=== PATIENT | male | born 1950 | race Caucasian/White ===

== ENCOUNTER 2018-12-30 02:26 | Outpatient (CLI) | payer MEDICARE, BC, SELFPAY ==
[2018-12-30 09:21] LABS: Hemoglobin A1C 6.1 % (4.5-6.2)
[2018-12-30 10:01] LABS: ALT 28 U/L (12-78); AST 20 U/L (15-37); Albumin 3.8 g/dL (3.4-5.0); Alkaline Phosphatase 53 U/L (46-116); BUN 21 mg/dL (7-18); Bilirubin, Total 0.5 mg/dL (0.2-1.0); CREATININE 1.02 mg/dL (0.70-1.30); Calcium 9.2 mg/dL (8.5-10.1); Chloride 102 mmol/L (98-107); Cholesterol 130 mg/dL (50-200); Glucose 117 mg/dL (70-100); HDL Cholesterol 41 mg/dL (40-60); LDL CHOLESTEROL 72 mg/dL (<100); Potassium 4.7 mmol/L (3.5-5.1); Sodium 138 mmol/L (136-145); Total Protein 6.7 g/dL (6.4-8.2); Triglyceride 89 mg/dL (30-150)
== END 2018-12-30 02:46 ==
PROVIDERS: PCP Nurse Practitioner; Visit Provider Nurse Practitioner
DX: E78.5 Hyperlipidemia, unspecified (principal); R73.01 Impaired fasting glucose; I10 Essential (primary) hypertension
CPT/HCPCS: 36415; 80053; 80061; 83721; 83036

== ENCOUNTER 2020-03-01 03:58 | Outpatient (CLI) | payer MEDICARE, BC, SELFPAY ==
[2020-03-01 10:58] LABS: Hemoglobin A1C 6.4 % (3.8-5.6)
[2020-03-01 11:21] LABS: ALT 36 U/L (16-63); AST 25 U/L (15-37); Alkaline Phosphatase 54 U/L (46-116); Anion Gap 10.1 mmol/L (3-11); BUN 29 mg/dL (7-18); Bilirubin, Total 0.8 mg/dL (0.2-1.0); CO2 24.9 mmol/L (21.0-32.0); CREATININE 1.25 mg/dL (0.70-1.30); Calcium 8.9 mg/dL (8.5-10.1); Calculated LDL 46 mg/dL (<100); Chloride 100 mmol/L (98-107); Cholesterol 136 mg/dL (<200); Estimated GFR 56.94 (mL/min/1.73m2); Glucose 132 mg/dL (74-106); HDL Cholesterol 43 mg/dL (40-60); Potassium 4.5 mmol/L (3.5-5.1); Sodium 135 mmol/L (136-145); Total Protein 7.1 g/dL (6.4-8.2); Triglyceride 237 mg/dL (<150)
== END 2020-03-01 04:18 ==
PROVIDERS: PCP Nurse Practitioner; Visit Provider Nurse Practitioner
DX: E78.5 Hyperlipidemia, unspecified (principal); I10 Essential (primary) hypertension; R73.01 Impaired fasting glucose
CPT/HCPCS: 36415; 80053; 80061; 83036

== ENCOUNTER 2020-11-12 09:46 | Outpatient (CLI) | payer MEDICARE, BC, SELFPAY ==
[2020-11-13 12:37] LABS: COVID-19 RT-PCR UVMMC Result Negative (Negative)
== END 2020-11-12 10:06 ==
PROVIDERS: PCP Nurse Practitioner; Visit Provider Nurse Practitioner
DX: Z20.822 Contact with and (suspected) exposure to COVID-19 (principal)
CPT/HCPCS: U0003; U0005

== ENCOUNTER 2021-04-12 02:22 | Outpatient (CLI) | payer MEDICARE, BC, SELFPAY ==
[2021-04-12 13:17] LABS: HCT 43.5 % (40.0-50.0); HGB 14.4 g/dL (13.5-17.5); MCH 30.9 pg (27.0-33.0); MCHC 33.1 % (32.0-36.0); MCV 93.3 fL (80-95); MPV 9.1 fL (8.0-11.0); Platelet Count 276 10^3/uL (130-400); RBC 4.66 10^6/uL (4.36-5.78); RDW 11.6 % (11.8-14.1); RDW-SD 39.7 fL
[2021-04-12 13:29] LABS: Hemoglobin A1C 6.4 % (<5.7)
[2021-04-12 14:15] LABS: ALT 23 U/L (16-63); AST 17 U/L (15-37); Albumin 3.9 g/dL (3.4-5.0); Alkaline Phosphatase 50 U/L (46-116); Anion Gap 10.7 mmol/L (3-11); BUN 20 mg/dL (7-18); Bilirubin, Total 0.7 mg/dL (0.2-1.0); CO2 25.3 mmol/L (21.0-32.0); Calcium 8.5 mg/dL (8.5-10.1); Chloride 106 mmol/L (98-107); Glucose 92 mg/dL (74-106); Potassium 4.6 mmol/L (3.5-5.1); Sodium 142 mmol/L (136-145); Total Protein 6.4 g/dL (6.4-8.2)
[2021-04-12 14:27] LABS: Calculated LDL 61 mg/dL (<100); Cholesterol 121 mg/dL (<200); HDL Cholesterol 46 mg/dL (40-60); Triglyceride 71 mg/dL (<150)
[2021-04-12 22:16] LABS: PSA, Screening 0.7 ng/mL (0.0-6.5)
== END 2021-04-12 02:23 | disposition home or self-care (01) ==
LOC: LBO 02:22
PROVIDERS: PCP Nurse Practitioner; Visit Provider Nurse Practitioner
DX: E78.5 Hyperlipidemia, unspecified (principal); I10 Essential (primary) hypertension; R73.03 Prediabetes; N40.1 Benign prostatic hyperplasia with lower urinary tract symptoms; Z12.5 Encounter for screening for malignant neoplasm of prostate
CPT/HCPCS: 36415; 80053; 80061; 84153; 85027; 83036

== ENCOUNTER 2022-05-19 03:54 | Outpatient (CLI) | payer MEDICARE, SELFPAY ==
[2022-05-19 08:11] LABS: HCT 42.3 % (40.0-50.0); HGB 14.4 g/dL (13.5-17.5); MCH 31.6 pg (27.0-33.0); MCV 93 fL (80-95); MPV 9.2 fL (8.0-11.0); Platelet Count 279 10^3/uL (130-400); RBC 4.55 10^6/uL (4.36-5.78); RDW 11.9 % (11.8-14.1); RDW-SD 40.2 fL; WBC 9.65 10^3/uL (4.4-10.8)
[2022-05-19 08:45] LABS: ALT 27 U/L (16-63); AST 19 U/L (15-37); Albumin 3.7 g/dL (3.4-5.0); Alkaline Phosphatase 39 U/L (46-116); Anion Gap 9.1 mmol/L (3-11); BUN 24 mg/dL (7-18); Bilirubin, Total 0.6 mg/dL (0.2-1.0); CO2 24.9 mmol/L (21.0-32.0); CREATININE 1.1 mg/dL (0.70-1.30); Calcium 8.1 mg/dL (8.5-10.1); Calculated LDL 52 mg/dL (<100); Chloride 103 mmol/L (98-107); Cholesterol 119 mg/dL (<200); Glucose 129 mg/dL (74-106); HDL Cholesterol 44 mg/dL (40-60); Potassium 4.5 mmol/L (3.5-5.1); Sodium 137 mmol/L (136-145); Triglyceride 116 mg/dL (<150)
== END 2022-05-19 03:55 | disposition home or self-care (01) ==
LOC: LBO 03:55
PROVIDERS: PCP Nurse Practitioner; Visit Provider Nurse Practitioner
DX: E78.5 Hyperlipidemia, unspecified (principal); I10 Essential (primary) hypertension; R73.01 Impaired fasting glucose; R07.9 Chest pain, unspecified
CPT/HCPCS: 36415; 80053; 80061; 85027

== ENCOUNTER 2023-01-14 03:11 | Outpatient (CLI) | payer MEDICARE, SELFPAY ==
[2023-01-14 08:35] LABS: Hemoglobin A1C 6.5 % (<5.7)
[2023-01-14 08:46] LABS: ALT 36 U/L (16-63); AST 23 U/L (15-37); Albumin 3.7 g/dL (3.4-5.0); Alkaline Phosphatase 48 U/L (46-116); Anion Gap 6.4 mmol/L (3-11); BUN 22 mg/dL (7-18); Bilirubin, Total 0.6 mg/dL (0.2-1.0); CO2 29.6 mmol/L (21.0-32.0); CREATININE 1.1 mg/dL (0.70-1.30); Calcium 8.8 mg/dL (8.5-10.1); Calculated LDL 38 mg/dL (<100); Chloride 104 mmol/L (98-107); Cholesterol 103 mg/dL (<200); Estimated GFR 70.88 (mL/min/1.73m2); Glucose 152 mg/dL (74-106); HDL Cholesterol 40 mg/dL (40-60); Sodium 140 mmol/L (136-145); Total Protein 6.9 g/dL (6.4-8.2); Triglyceride 126 mg/dL (<150)
== END 2023-01-14 03:12 | disposition home or self-care (01) ==
LOC: LBO 03:11
PROVIDERS: PCP Nurse Practitioner; Visit Provider Nurse Practitioner
DX: E78.5 Hyperlipidemia, unspecified (principal); I10 Essential (primary) hypertension; R73.03 Prediabetes
CPT/HCPCS: 36415; 80053; 80061; 83036

== ENCOUNTER → 2023-11-17 08:27 | Outpatient (BNVA) | payer MEDICARE, SELFPAY | PROVIDERS: PCP Nurse Practitioner; Referring Provider Nurse Practitioner; Visit Provider Podiatrist | DX: M77.41 Metatarsalgia, right foot; M77.42 Metatarsalgia, left foot; G62.9 Polyneuropathy, unspecified; M67.01 Short Achilles tendon (acquired), right ankle; M67.02 Short Achilles tendon (acquired), left ankle | CPT/HCPCS: 99213 ==

== ENCOUNTER 2023-12-07 04:03 | Outpatient (CLI) | payer MEDICARE, SELFPAY ==
[2023-12-07 07:48] LABS: Hemoglobin A1C 6.1 % (<5.7)
[2023-12-07 07:53] LABS: ALT 27 U/L (16-63); AST 18 U/L (15-37); Albumin 3.9 g/dL (3.4-5.0); Alkaline Phosphatase 56 U/L (46-116); BUN 24 mg/dL (7-18); Bilirubin, Total 0.5 mg/dL (0.2-1.0); CREATININE 1.1 mg/dL (0.70-1.30); Calcium 9.4 mg/dL (8.5-10.1); Calculated LDL 50 mg/dL (<100); Chloride 102 mmol/L (98-107); Cholesterol 111 mg/dL (<200); Estimated GFR 70.44 (mL/min/1.73m2); Glucose 145 mg/dL (74-106); HDL Cholesterol 44 mg/dL (40-60); Sodium 138 mmol/L (136-145); Total Protein 7.2 g/dL (6.4-8.2); Triglyceride 88 mg/dL (<150)
== END 2023-12-07 04:04 | disposition home or self-care (01) ==
LOC: LBO 04:03
PROVIDERS: Absent Provider Nurse Practitioner; PCP Nurse Practitioner; Referring Provider Nurse Practitioner; Visit Provider Nurse Practitioner
DX: E78.5 Hyperlipidemia, unspecified (principal); E11.9 Type 2 diabetes mellitus without complications; R07.9 Chest pain, unspecified; I10 Essential (primary) hypertension
CPT/HCPCS: 36415; 80053; 80061; 83036

== ENCOUNTER → 2024-02-16 08:57 | Outpatient (BNVA) | payer MEDICARE, SELFPAY | PROVIDERS: PCP Nurse Practitioner; Referring Provider Nurse Practitioner; Visit Provider Podiatrist | DX: M77.41 Metatarsalgia, right foot; M77.42 Metatarsalgia, left foot; M79.671 Pain in right foot; G62.9 Polyneuropathy, unspecified; M67.01 Short Achilles tendon (acquired), right ankle; M67.02 Short Achilles tendon (acquired), left ankle; M79.672 Pain in left foot | CPT/HCPCS: 99213 ==

== ENCOUNTER 2024-02-16 09:57 | Outpatient (CLI) | payer MEDICARE, SELFPAY ==
[2024-02-16 10:32] LABS: Vitamin B12 > 2000 pg/mL (193-986)
== END 2024-02-16 09:58 | disposition home or self-care (01) ==
LOC: LBO 09:57
PROVIDERS: PCP Nurse Practitioner; Visit Provider Podiatrist
DX: R79.89 Other specified abnormal findings of blood chemistry (principal)
CPT/HCPCS: 36415; 82607

== ENCOUNTER → 2024-03-16 09:06 | Outpatient (BNVA) | payer MEDICARE, SELFPAY | PROVIDERS: PCP Nurse Practitioner; Referring Provider Nurse Practitioner; Visit Provider Podiatrist | DX: R79.89 Other specified abnormal findings of blood chemistry; M77.41 Metatarsalgia, right foot; M77.42 Metatarsalgia, left foot; G62.9 Polyneuropathy, unspecified; M67.01 Short Achilles tendon (acquired), right ankle; M67.02 Short Achilles tendon (acquired), left ankle; M79.671 Pain in right foot; M79.672 Pain in left foot | CPT/HCPCS: 99213 ==

== ENCOUNTER → 2024-09-21 09:29 | Outpatient (BNVA) | payer MEDICARE, SELFPAY | PROVIDERS: PCP Nurse Practitioner; Referring Provider Nurse Practitioner; Visit Provider Podiatrist | DX: R79.89 Other specified abnormal findings of blood chemistry (principal); M77.41 Metatarsalgia, right foot; M77.42 Metatarsalgia, left foot; G62.9 Polyneuropathy, unspecified; M67.01 Short Achilles tendon (acquired), right ankle; M67.02 Short Achilles tendon (acquired), left ankle | CPT/HCPCS: 99213 ==

== ENCOUNTER 2024-12-26 02:01 | Outpatient (CLI) | payer MEDICARE, SELFPAY ==
[2024-12-26 08:03] LABS: ALT 25 U/L (16-63); AST 19 U/L (15-37); Albumin 3.8 g/dL (3.4-5.0); Alkaline Phosphatase 58 U/L (46-116); Anion Gap 6.2 mmol/L (3-11); BUN 26 mg/dL (7-18); Bilirubin, Total 0.6 mg/dL (0.2-1.0); CO2 28.8 mmol/L (21.0-32.0); CREATININE 1.4 mg/dL (0.70-1.30); Calcium 9.1 mg/dL (8.5-10.1); Calculated LDL 42 mg/dL (<100); Chloride 104 mmol/L (98-107); Cholesterol 115 mg/dL (<200); Estimated GFR 52.41 (mL/min/1.73m2); Glucose 133 mg/dL (74-106); HDL Cholesterol 49 mg/dL (>or=40); Potassium 4.9 mmol/L (3.5-5.1); Sodium 139 mmol/L (136-145); Triglyceride 122 mg/dL (<150); Vitamin B12 1711 pg/mL (193-986)
== END 2024-12-26 02:02 | disposition home or self-care (01) ==
PROVIDERS: PCP Nurse Practitioner; Referring Provider Nurse Practitioner; Visit Provider Nurse Practitioner
DX: E11.9 Type 2 diabetes mellitus without complications (principal); E78.5 Hyperlipidemia, unspecified; I10 Essential (primary) hypertension; G62.9 Polyneuropathy, unspecified
CPT/HCPCS: 36415; 80053; 80061; 82607

== ENCOUNTER 2025-01-10 01:10 | Outpatient (CLI) | payer MEDICARE, SELFPAY ==
--- NOTE | 2025-01-10 08:30 | DI.US_ITS ---
APPROVED REPORT EXAM: Comprehensive 2D, Doppler, and color-flow Echocardiogram Patient Location: Out-Patient Excavation Laborer: Felipe Smith RDCS (AE) Indications: Systolic murmur Other Information Study Quality: Fair. Technically limited study due to body habitus. Conclusion Technically difficult and suboptimal study Normal left ventricular wall thickness and chamber size. Ejection fraction is 60%. Wall motion is n ormal Normal right ventricular size and function Both atria are normal in size Aortic valve is sclerotic without stenosis or regurgitation Mitral annular calcification. Trace to mild mitral regurgitation Estimated right ventricular systolic pressure is 30 mmHg Ascending aorta measures 3.63 cm Wall motion Left Ventricle The left ventricle is normal size. The left ventricular systolic function is normal. The left ventric ular ejection fraction is within the normal range. There is normal left ventricular wall thickness. T here is normal LV segmental wall motion. The left ventricular diastolic function is normal. There is no ventricular septal defect visualized. LVEF is 60%. Right Ventricle The right ventricle is normal size. The right ventricular systolic function is normal. Atria The left atrium size is normal. The right atrium size is normal. The atrial septum is aneurysmal. Aortic Valve The Aortic valve is sclerotic. There is no aortic valvular stenosis. No aortic regurgitation is prese nt. Mitral Valve Moderate mitral annular calcification. No evidence of mitral valve stenosis. Trace to mild mitral reg urgitation. Tricuspid Valve The tricuspid valve is normal in structure. There is no tricuspid valve stenosis. Mild tricuspid regu rgitation. The RVSP is 30 mmHg. Pulmonic Valve The pulmonary valve is normal in structure. There is no pulmonic valvular stenosis. There is no pulmo boogie valvular regurgitation. Great Vessels The aortic root is normal in size. The ascending aorta is mildly dilated. Aortic arch is normal in ca liber. IVC is normal in size and collapses >50% with inspiration. Pericardium There is no pericardial effusion. 2D Dimensions IVSD d PLAX 1.05 cm M: 0.6-1.2 Ao Root d 3.05 cm M: 3.1 - 3.7 LVPW d PLAX 0.99 cm M: 0.6 - 1.2 Ao Asc Diam d 3.63 cm M: 2.6 - 3.4 LVID d PLAX 3.92 cm M: 4.2 - 5.8 LVDs 2.71 cm M: 2.5 - 4.0 LV EF Teichholz 59.2 % FS 30.94 % LV EDV (Teich) 66.8 mL LV ESV (Teich) 27.2 mL Stroke Vol Index (Teich) 21.50 M-Mode TAPSE 2.30 cm (M/F) >1.7 Auto EF LV EDV A4C 86.2 mL LV EDV A2C 82.7 mL LV EDV BP 83.9 mL LV ESV A4C 37.6 mL LV ESV A2C 36.4 mL LV ESV BP 36.7 mL LVEF(%) A4C 56.4 % LVEF(%) A2C 55.9 % LVEF(%) BP 56.2 % LV SV A4C 48.7 ml LV SV A2C 46.3 ml LV SV BP 47.2 ml LV CO A4C 4.3 L/min LV CO A2C 4.1 L/min LV CO BP 4.2 L/min HR A4C 88.03 BPM HR A2C 88.46 BPM LV EDV Index (BP) LA Volume LA Length A4C 5.2 cm LA Length A2C 4.7 cm LA Area A4C s 15.05 cm2 LA Area A2C s 12.56 cm2 LA Vol A4C A-L 36.95 mL LA Vol A2C A-L 28.74 mL LA Vol Biplane A-L 34.4 mL LA Vol/BSA A4C A-L LA Vol/BSA A2C A-L LA Vol/BSA BP A-L 18.7 mL/m2 LA Vol A4C MOD 35.1 mL LA Vol A2C MOD 26.3 mL LA Vol BP MOD 31.8 mL RA Volume RA Area A4C 8.3 cm2 RA ESV A4C (A-L) 11.6mL RA Vol/BSA A4C A-L RA Length A4C 5.0 cm RA ESV A4C (MOD) 10.7mL LV Diastology MV E' medial 0.171 (>0.07 m/s) MV E Vmax 1.55 (0.4-1.3 m/s) MV E' lateral 0.108 (>0.1 m/s) Aortic Valve AoV Vmax 2.26 m/s LVOT Vmax 1.37 m/s AoV Peak Grad 20.4 mmHg LVOT Peak Grad 7.5 mmHg AoV Area (Vmax) 1.54 cm2 LVOT VTI 0.239 m AoV VTI 0.402 m LVOT Mean Grad 3.8 mmHg AoV Mean Mateus. 1.67 m/s LVOT SV 60.60 mL AoV Mean Grad 12.3 mmHg LVOT Diam s 1.75 cm AoV Area (VTI) 1.51 cm2 AV Regurg Peak Gr. 20.37 mmHg Velocity Ratio 0.61 Tricuspid Valve RA Pressure 3.00 mmHg TR Vmax 2.59 m/s TV S' 0.17 m/s TR Peak Grad 26.8 mmHg RVSP (TR) 29.9 mmHg
== END 2025-01-10 01:30 ==
LOC: DI 01:11
PROVIDERS: PCP Nurse Practitioner; Visit Provider Internal Medicine Cardiovascular Disease
DX: I08.0 Rheumatic disorders of both mitral and aortic valves (principal)
CPT/HCPCS: 93306

== ENCOUNTER 2025-07-24 02:17 | Outpatient (CLI) | payer MEDICARE, SELFPAY ==
--- NOTE | 2025-07-24 09:20 | DI.US_ITS ---
APPROVED REPORT EXAM: Comprehensive 2D, Doppler, and color-flow Echocardiogram Patient Location: Out-Patient Routing Equipment Tender: Miroslava Bird RDCS (AE) Indications: Slightly dilated ascending aorta Other Information Study Quality: Fair Conclusion Normal left ventricular wall thickness and chamber size. Ejection fraction is 58%. Wall motion is normal Normal right ventricular size and function Both atria are normal in size Aortic valve is sclerotic/calcified without stenosis or regurgitation Estimated right ventricular systolic pressure is 38 mmHg Ascending aorta measures 3.7 cm There is no significant change compared to an echocardiogram from 6 months earlier Wall motion Left Ventricle The left ventricle is normal size. The left ventricular systolic function is normal. The left ventricular ejection fraction is within the normal range. There is normal left ventricular wall thickness. There is normal LV segmental wall motion. There is no ventricular septal defect visualized. LVEF is 58%. Right Ventricle The right ventricle is normal size. The right ventricular systolic function is normal. Atria The left atrium size is normal. The right atrium size is normal. The interatrial septum is intact with no evidence for an atrial septal defect. Aortic Valve Aortic valve is calcified. Number of aortic valve leaflets could not be assessed. No hemodynamically significant valvular aortic stenosis. No aortic regurgitation is present. Mitral Valve The mitral valve is normal in structure. No evidence of mitral valve stenosis. Mild mitral regurgitation. Tricuspid Valve The tricuspid valve is normal in structure. There is no tricuspid valve stenosis. Trace tricuspid regurgitation. The RVSP is 38.4mmHg. Pulmonic Valve Pulmonic valve is not well visualized. There is no pulmonic valvular stenosis. There is no pulmonic valvular regurgitation. Great Vessels The aortic root is normal in size. The ascending aorta is mildly dilated. Aortic arch is dilated. IVC is normal in size and collapses >50% with inspiration. Pericardium There is no pericardial effusion. 2D Dimensions IVSD d PLAX 1.00 cm M: 0.6-1.2 Ao Root d 3.21 cm M: 3.1 - 3.7 LVPW d PLAX 1.00 cm M: 0.6 - 1.2 Ao Asc Diam d 3.70 cm M: 2.6 - 3.4 LVID d PLAX 4.23 cm M: 4.2 - 5.8 LVDs 3.00 cm M: 2.5 - 4.0 LV EF Teichholz 58.0 % FS 30.30 % LV EDV (Teich) 80.1 mL LV ESV (Teich) 33.6 mL M-Mode TAPSE 2.08 cm (M/F) >1.7 Auto EF LV EDV A4C 107.0 mL LV EDV A2C 114.8 mL LV EDV BP 110.5 mL LV ESV A4C 46.4 mL LV ESV A2C 47.1 mL LV ESV BP 47.3 mL LVEF(%) A4C 56.6 % LVEF(%) A2C 59.0 % LVEF(%) BP 57.2 % LV SV A4C 60.5 ml LV SV A2C 67.8 ml LV SV BP 63.2 ml LV CO A4C 4.5 L/min LV CO A2C 5.0 L/min LV CO BP 4.7 L/min HR A4C 74.08 BPM HR A2C 73.93 BPM LV EDV Index (BP) LA Volume LA Length A4C 5.2 cm LA Length A2C 5.6 cm LA Area A4C s 15.86 cm2 LA Area A2C s 21.20 cm2 LA Vol A4C A-L 40.89 mL LA Vol A2C A-L 68.66 mL LA Vol Biplane A-L 54.7 mL LA Vol/BSA A4C A-L LA Vol/BSA A2C A-L LA Vol/BSA BP A-L 29.7 mL/m2 LA Vol A4C MOD 38.9 mL LA Vol A2C MOD 63.9 mL LA Vol BP MOD 51.1 mL RA Volume RA Area A4C 11.0 cm2 RA ESV A4C (A-L) 19.1mL RA Vol/BSA A4C A-L RA Length A4C 5.3 cm RA ESV A4C (MOD) 17.8mL LV Diastology MV E' medial 0.092 (>0.07 m/s) MV E Vmax 1.72 (0.4-1.3 m/s) MV E' lateral 0.092 (>0.1 m/s) MV E' Average 0.092 m/s Aortic Valve AoV Vmax 2.23 m/s LVOT Vmax 1.44 m/s AoV Peak Grad 20.0 mmHg LVOT Peak Grad 8.3 mmHg AoV Area (Vmax) 2.11 cm2 LVOT VTI 0.301 m AoV VTI 0.446 m LVOT Mean Grad 4.9 mmHg AoV Mean Mateus. 1.56 m/s LVOT SV 98.32 mL AoV Mean Grad 11.1 mmHg LVOT Diam s 2.00 cm AoV Area (VTI) 2.20 cm2 Velocity Ratio 0.65 Mitral Valve MV Vmax TIPS 1.63 m/s MV Mean Grad 3.9 (<2mmHg) MV Area PHT 5.57 cm2 MV VTI 0.318 m Pulmonary Valve PV Vmax 1.19 (0.5-1.5 m/s) RVOT Vmax 0.78 m/s PV Peak Grad 5.7 mmHg RVOT Peak Gr. 2.5 mmHg PV Mean Mateus 0.79 m/s RVOT VTI 0.152 m PV Mean Grad 2.9 mmHg RVOT Mean Gr. 1.3 mmHg Tricuspid Valve RA Pressure 3.00 mmHg TR Vmax 2.97 m/s TV S' 0.14 m/s TR Peak Grad 35.4 mmHg RVSP (TR) 38.4 mmHg
== END 2025-07-24 02:37 ==
LOC: DI 02:18
PROVIDERS: Visit Provider Internal Medicine Cardiovascular Disease
DX: I77.810 Thoracic aortic ectasia (principal)
CPT/HCPCS: 93306

== ENCOUNTER 2025-09-15 22:51 | Emergency (ER) | payer MEDICARE, SELFPAY ==
[2025-09-15] VITALS (7 sets, daily range): BP systolic 133–195; BP diastolic 55–69; PULSE 67–99; RESP 18–33; TEMP 36.3; O2SAT 92–96
--- NOTE | 2025-09-15 22:45 | RT.EKG_ITS ---
APPROVED REPORT Exam: Resting ECG Reason for Exam: chest pain Patient Location: E HR:102 bpm ECG Measurements Heart Rate 102 AXIS NV 220 P 164 QRSd 88 QRS 65 QT 370 T 21 QTc 481 Conclusion Sinus or ectopic atrial tachycardia...P axis (-45,135), rate> 99 Prolonged NV interval...NV >215, V-rate 91-[address] segment or T wave abnormalities to suggest occlusive [place]
--- NOTE | 2025-09-15 23:10 | W.ED.GENAD ---
Discharge Plan Disposition Patient Disposition: Admit to [facility] Condition: Serious Discharge Details Clinical Impression: ACS (acute coronary syndrome), Atypical angina, Atrial flutter, Pleural effusion Primary Care Provider: Apolinar Mercedes ED Provider: Vickie Jimenez Home Meds and New Rx's Prescriptions: No Action naproxen sodium 220 mg tablet 220 mg PO BID PRN PreserVision AREDS 4,296 mcg-226 mg-90 mg capsule 1 cap PO BID lisinopril 20 mg tablet 20 mg PO DAILY Qty: 90 3RF metformin 500 mg tablet 500 mg PO BID Qty: 180 3RF simvastatin 20 mg tablet 20 mg PO DAILY Qty: 90 3RF tamsulosin 0.4 mg capsule 0.4 mg PO DAILY Qty: 90 3RF multivitamin [Daily Multi-Vitamin] 1 EACH tablet 1 ea PO DAILY acetaminophen 500 MG tablet 1,000 mg PO Q4H PRN carboxymethylcellulose sodium [Artificial Tears (cmc)] ophthalmic (eye) PRN Rx Instructions: Dry [id number] as needed--[place] 11/02/23 aspirin 81 mg tablet,delayed release (DR/EC) 81 mg PO DAILY naproxen 500 mg tablet 500 mg PO Q8H PRN (Reason: pain) oxycodone 5 mg tablet 5 mg PO Q8H PRN (Reason: pain) HPI General Mode of arrival: ambulatory. Date/Time Provider Initiated Documentation: 09/15/25 22:53. Limitations to Documentation: no limitations. Information obtained by: patient and family. HPI Narrative: 75yo M with hx HTN, DM, tricuspid regurg, 2 weeks post op from right hip replacement, presenting for chest pain. Started around 1700, anterior chest/substernal. Does not radiate to arms or back. Constant but much worse with deep breathing, also seems worse with activity (he thinks due to increased breathing). Has been constant and worsening since onset. Never had similar pain before. Has noticed some swelling in both his legs since the surgery. No increasing pain at surgical site, reports recovering well. Otherwise in his usual state of health with no fevers, chills, rash, nausea, vomiting, abdominal pain, hematuria, or other concerns. Related Data Home Medications ?Medication ?Instructions ?Recorded ?Confirmed multivitamin (Daily Multi-Vitamin 1 ea PO DAILY 04/25/13 12/05/25 tablet) acetaminophen 500 mg tablet 1,000 mg PO Q4H PRN 08/16/15 09/15/25 naproxen sodium 220 mg tablet 220 mg PO BID PRN 08/12/18 09/15/25 vitamins A,C,Z-gojz-pssshe 4,296 1 cap PO BID 07/08/23 09/15/25 mcg-226 mg-90 mg capsule (PreserVision AREDS) carboxymethylcellulose sodium ophthalmic (eye) PRN 11/06/23 06/20/25 [Artificial Tears (cmc)] lisinopril 20 mg tablet 20 mg PO DAILY #90 tab-caps 12/13/24 09/15/25 metformin 500 mg tablet 500 mg PO BID #180 tabs 12/13/24 09/15/25 simvastatin 20 mg tablet 20 mg PO DAILY #90 tab-caps 12/13/24 09/15/25 tamsulosin 0.4 mg capsule 0.4 mg PO DAILY #90 tab-caps 12/13/24 09/15/25 aspirin 81 mg tablet,delayed 81 mg PO DAILY 09/15/25 09/15/25 release naproxen 500 mg tablet 500 mg PO Q8H PRN pain 09/15/25 09/15/25 oxycodone 5 mg tablet 5 mg PO Q8H PRN pain 09/15/25 09/15/25 Previous Rx's ?Medication ?Instructions ?Recorded lisinopril 20 mg tablet 20 mg PO DAILY #90 tab-caps 12/13/24 metformin 500 mg tablet 500 mg PO BID #180 tabs 12/13/24 simvastatin 20 mg tablet 20 mg PO DAILY #90 tab-caps 12/13/24 tamsulosin 0.4 mg capsule 0.4 mg PO DAILY #90 tab-caps 12/13/24 Allergies Allergy/AdvReac Type Severity Reaction Status Date / Time Penicillins Allergy Severe FACIAL, Verified 09/15/25 22:59 HAND SWELLING sildenafil citrate (From AdvReac Intermediate vision Verified 09/15/25 22:59 Viagra) very bright at 100mg dose General Stated Complaint: Chest Pain HAYDEN: 3 Review of Systems Narrative: see HPI Exam Narrative Exam Narrative: General: Alert, well appearing, well nourished, in no acute distress. Head: Normocephalic, atraumatic Neck: Trachea midline, ?Neck supple. ENT: ?MMM.? No oropharygeal lesions or exudate. Cardiac: ?Tachycardiac to low 100's, regular. Holosystolic murmur. Equal radial pulses. Resp: No respiratory distress. CTAB. Abd: ?Soft, non-distended, nontender. Muprhy's negative. : ?No suprapubic tenderness. Extremities: ?No deformities.? Surgical site right hip incisions C/D/I, does not appear infected Neurologic: GCS 15. ? Moves all extremities freely against gravity Course Vital Signs Vital signs: Vital Signs Temperature 36.3 C L 09/15/25 22:54 Pulse 99 H 09/15/25 22:54 Respiratory Rate 20 09/15/25 22:54 Blood Pressure 195/69 H 09/15/25 22:54 Pulse Oximetry 96 09/15/25 22:54 Temperature 36.3 C L 09/15/25 22:54 Pulse 99 H 09/15/25 22:54 Respiratory Rate 20 09/15/25 22:54 Blood Pressure 195/69 H 09/15/25 22:54 Blood Pressure Position Sitting 09/15/25 22:54 Pulse Oximetry 96 09/15/25 22:54 Oxygen Delivery Method Room Air 09/15/25 22:54 Oxygen Flow Rate 0 09/15/25 22:54 Medical Decision Making 75yo M with hx HTN, DM, tricuspid regurg, 2 weeks post op from right hip replacement, presenting for chest pain. Started around 1700, anterior chest/substernal. Does not radiate to arms or back. Worse with deep breathing or activity. Well appearing and no distress on exam, lungs CTAB, holosystolic murmur present at left sternal border. Hypertensive on arrival and tachycardiac to low 100's; BP improved to 130's/50's without intervention. UE BP 130's-140's bilaterally. EKG on arrival SR with 1st degree block, rate 100's, slight ST elevations lead, not suggestive of occlusive NC. Given 325 of ASA. Higher suspicion for pulmonary embolism than ACS or dissection; will hold off on nitro for now and get CTA for PE. -Labs reviewed as below, CBC with leukocytosis to 18 and mild anemia with Hg 11.0 (new compared to pre-op labs), CMP with no actionable abnormalities and no LFT elevations to suggest gallbladder pathology, Mg normal, lipase not suggestive of pancreatitis, ESR & CRP mildly elevated and overall reassuring against pericarditis, cogas reassuring, BNP elevated at ~1300 (pt clinically not in acute heart failure), initial troponin reassuring at 12 with 1 hour repeat reassuring at 11. -CTA independently reviewed; no large saddle embolus or clear aortic dissection or pneumonia or pneumothoraox on my view, radiology read with trace left pleural effusion and no other acute findings. While on telemetry pt noted to have change in rhythm/rate; repeat EKG obtained and captured aflutter 4:1. Shortly thereafter sinus rhythm on monitor with clear regular P waves, rate 70's-80's. TSH sent and normal. On reassessment patient reports he now has severe pain in his back, worse than his chest pain has been. Given 4mg IV morphine with good effect. No clear aortic dissection on initial chest CT but given this sudden change I feel a full evaluation of his aorta with the correct timing is now indicated, despite the double contrast load, given life threatening nature of potential diagnosis. With elevated white count and tachycardia as well as trace pleural effusion, must consider infection though he does not appear overtly septic. Will cover with levofloxacin and linezolid (penicillin allergy). Blood cultures were sent. Lactate and procal are reassuring. -CTA dissection protocol independently reviewed; again no clear dissection or aneurysm on my view; radiology read with no evidence of dissection or aneurysm. Given nitro with improvement in pain. After three doses SL his back and chest pain is entirely gone; favors atypical angina. Discussed with [facility] cardiology Dr. Gutiérrez including EKGs, labs, imaging, and clinical course; agrees pt warrants urgent ischemic eval. Advised heparin gtt, plavix 300, asa 81 daily in the meantime. Patient is accepted for transfer under Dr. Robertson, listed for bed anticipated later today. Discussed with [facility] hospitalist Dr. Ly; pt accepted to medicine service for management awaiting bed availability at [facility]. Lab Data Lab results reviewed: Yes I reviewed the patient's lab results. Labs: 09/16/25 01:15 Blood Blood Culture - Pending 09/16/25 00:59 Blood Blood Culture - Pending Laboratory Tests Range/Units 09/15/25 09/15/25 09/16/25 23:12 23:13 00:00 WBC (4.4-10.8) 10^3/uL 18.70 H RBC (4.36-5.78) 10^6/uL 3.68 L Hgb (13.5-17.5) g/dL 11.0 L Hct (40.0-50.0) % 34.0 L MCV (80-95) fL 92 MCH (27.0-33.0) pg 29.9 MCHC (32.0-36.0) % 32.4 RDW (11.8-14.1) % 13.2 Plt Count (130-400) 10^3/uL 461 H MPV (8.0-11.0) fL 8.6 Immature Gran % % 0.6 Neutrophils % % 84.3 Lymphocytes % % 5.3 Monocytes % % 7.8 Eosinophils % % 1.6 Basophils % % 0.4 Nucleated RBC % (0.0-0.3) % 0.0 Absolute Neutrophils (1.2-6.7) 10^3/uL 15.76 H Absolute Lymphocytes (1.2-3.4) 10^3/uL 0.99 L Absolute Monocytes (0.1-0.8) 10^3/uL 1.46 H Absolute Eosinophils (0.0-0.7) 10^3/uL 0.30 Absolute Basophils (0.0-0.2) 10^3/uL 0.07 ESR (0-20) mm/hr 24 H PT (9.1-11.1) sec 11.1 INR (0.9-1.1) 1.1 APTT (20.6-30.2) sec 30.5 H VBG pH (7.31-7.41) VBG pCO2 (41-51) mmHg VBG pO2 mmHg VBG HCO3 (23-28) mmol/L VBG Total CO2 (24-29) mmol/L VBG O2 Saturation % VBG Base Excess (-2-3) mmol/L VBG Lactate (<or=2.0) mmol/L Sodium (136-145) mmol/L 140 Potassium (3.5-5.1) mmol/L 5.0 Chloride (98-107) mmol/L 108 H Carbon Dioxide (20.0-31.0) mmol/L 22.4 Anion Gap (3-11) mmol/L 9.6 BUN (9-23) mg/dL 39 H Creatinine (0.73-1.18) mg/dL 1.29 H Est GFR (CKD-EPI 2020) (mL/min/1.73m2) 54.06 Glucose (74-106) mg/dL 160 H Calcium (8.3-10.6) mg/dL 8.7 Magnesium (1.6-2.6) mg/dL 2.0 Total Bilirubin (0.2-1.2) mg/dL 0.70 AST (<34) U/L 16 ALT (10-49) U/L 16 Alkaline Phosphatase (46-116) U/L 65 Troponin I (<54) ng/L 12 C-Reactive Protein (<=0.50) mg/dL 4.41 H NT-Pro-B Natriuret Pep (<300) pg/mL 1325 H Total Protein (5.7-8.2) g/dL 6.9 Albumin (3.2-5.0) g/dL 4.2 Lipase (<53) U/L 37 TSH (0.55-4.78) uIU/mL Urine Color (Yellow) Yellow Urine Clarity (Clear) Clear Urine pH (5-8) 5.5 Ur Specific [place] (1.005-1.025) 1.010 Urine Protein (Neg-Trace) mg/dL Negative Urine Ketones (Negative) mg/dL Negative Urine Blood (Negative) Negative Urine Nitrite (Negative) Negative Urine Bilirubin (Negative) Negative Urine Urobilinogen (Up to 0.2) mg/dL 0.2 Ur Leukocyte Esterase (Negative) Negative Urine Glucose (Negative) mg/dL Negative Add-On Test Request DONE Range/Units 09/16/25 09/16/25 00:04 01:44 WBC (4.4-10.8) 10^3/uL RBC (4.36-5.78) 10^6/uL Hgb (13.5-17.5) g/dL Hct (40.0-50.0) % MCV (80-95) fL MCH (27.0-33.0) pg MCHC (32.0-36.0) % RDW (11.8-14.1) % Plt Count (130-400) 10^3/uL MPV (8.0-11.0) fL Immature Gran % % Neutrophils % % Lymphocytes % % Monocytes % % Eosinophils % % Basophils % % Nucleated RBC % (0.0-0.3) % Absolute Neutrophils (1.2-6.7) 10^3/uL Absolute Lymphocytes (1.2-3.4) 10^3/uL Absolute Monocytes (0.1-0.8) 10^3/uL Absolute Eosinophils (0.0-0.7) 10^3/uL Absolute Basophils (0.0-0.2) 10^3/uL ESR (0-20) mm/hr PT (9.1-11.1) sec INR (0.9-1.1) APTT (20.6-30.2) sec VBG pH (7.31-7.41) 7.32 VBG pCO2 (41-51) mmHg 41 VBG pO2 mmHg 30 VBG HCO3 (23-28) mmol/L 21 L VBG Total CO2 (24-29) mmol/L 20 L VBG O2 Saturation % 49 VBG Base Excess (-2-3) mmol/L -5 L VBG Lactate (<or=2.0) mmol/L 0.8 Sodium (136-145) mmol/L Potassium (3.5-5.1) mmol/L Chloride (98-107) mmol/L Carbon Dioxide (20.0-31.0) mmol/L Anion Gap (3-11) mmol/L BUN (9-23) mg/dL Creatinine (0.73-1.18) mg/dL Est GFR (CKD-EPI 2020) (mL/min/1.73m2) Glucose (74-106) mg/dL Calcium (8.3-10.6) mg/dL Magnesium (1.6-2.6) mg/dL Total Bilirubin (0.2-1.2) mg/dL AST (<34) U/L ALT (10-49) U/L Alkaline Phosphatase (46-116) U/L Troponin I (<54) ng/L 13 C-Reactive Protein (<=0.50) mg/dL NT-Pro-B Natriuret Pep (<300) pg/mL Total Protein (5.7-8.2) g/dL Albumin (3.2-5.0) g/dL Lipase (<53) U/L TSH (0.55-4.78) uIU/mL 3.69 Urine Color (Yellow) Urine Clarity (Clear) Urine pH (5-8) Ur Specific [place] (1.005-1.025) Urine Protein (Neg-Trace) mg/dL Urine Ketones (Negative) mg/dL Urine Blood (Negative) Urine Nitrite (Negative) Urine Bilirubin (Negative) Urine Urobilinogen (Up to 0.2) mg/dL Ur Leukocyte Esterase (Negative) Urine Glucose (Negative) mg/dL Add-On Test Request DONE Critical Care Time Critical Care Time Critical Care Time: Yes Total Critical Care Time: 35 Attestation: Due to a high probability of clinically significant, life threatening deterioration, the patient required my highest level of preparedness to intervene emergently and I personally spent this critical care time directly and personally managing the patient. This critical care time included obtaining a history; examining the patient; pulse oximetry; ordering and review of studies; arranging urgent treatment with development of a management plan; evaluation of patient's response to treatment; frequent reassessment; and, discussions with other providers. This critical care time was performed to assess and manage the high probability of imminent, life-threatening deterioration that could result in multi-organ failure. It was exclusive of separately billable procedures and treating other patients? PFSH All Active Problems (Updated 09/16/25 @ 02:06 by Vickie Jimenez MD) Pleural effusion (Acute) Atrial flutter (Acute) Atypical angina (Acute) ACS (acute coronary syndrome) (Acute) Elevated serum creatinine (Acute ~12/2024) Osteoarthritis of right hip (Acute ~08/2024) 08/26/24 Orthopedics Low vitamin B12 level (Acute) Achilles tendon contracture, bilateral (Acute) Diabetes type 2, controlled (Acute) Foot pain (Acute) Metatarsalgia of both feet (Acute) Neuropathy (Acute 07/29/21) Podiatry/[place] Tubular adenoma (Acute 04/04/21) [facility] Gastroenterology Bilateral foot pain (Acute) Prostate nodule (Acute 04/04/21) PSA,MAROCS 6 months [facility] Medicare annual wellness visit, subsequent (Acute) Pre-diabetes (Acute) Failure to attend screening for abdominal aortic aneurysm (AAA) (Acute) Facial lesion (Acute) 03/27/20 Squamous Cell Carcinoma, Left Zygoma. Skin Shave Biopsy Derm: Jennifer Hector 08/08/21 f/u Dr Hector, recommend 1 yr f/u Anxiety (Chronic) SOB (shortness of breath) (Acute) Chest pain (Acute) Sciatica (Acute 05/18/14) Impaired fasting glucose (Acute 07/27/15) Generalized osteoarthritis (Acute 07/27/15) Essential hypertension (Acute 07/27/15) Erectile dysfunction (Acute 05/18/14) Elevated lipids (Acute 05/18/14) PCEq 11.7%%: LDL baseline 103 BPH w urinary obs/LUTS (Acute 08/01/16) Medical History (Updated 09/16/25 @ 02:06 by Vickie Jimenez MD) SCC (squamous cell carcinoma) (~03/2020) L zygoma Actinic keratitis (~08/2022) 08/12/22 R and L ear, Dr Hector 08/12/23 brow line - cryo treated Elevated PSA 06/02 1.55 at Surgical History S/P colonoscopy 04/04/21 [facility] Endoscopy 01/19/24-[facility] f/u h/o adenomatous polyps. PATHOLOGY: Tubular adenomas x2 Vasectomy (10/11/91) Replacement of total knee joint (08/13/15) Bilateral done [facility] Total replacement of hip (10/08/06) Family History Mother Essential hypertension Father Alcohol abuse Social History Smoking/Tobacco Use Status: Former Tobacco Use Quit Date: 10/12/69 Smoking risk assessment performed?: Yes Alcohol Intake: current Alcohol Intake frequency: a few times a week Drug use: Never Substance use type: does not use Caregiver/Support person: No Household members: spouse Number of Children: 2 Communication Needs: None Current gender identity: male What is your relationship status?: Panel score (0-1 are the most socially isolated patients): 1 What type of physical activity do you participate in: walking and resistance training Duration: 60-90 minutes/day Frequency: 3-4 times per week Seatbelt use: always PAWSS Have you Been Recently Intoxicated or Drunk Within the Last 30 days?: No Have you Ever Experienced Previous Episodes of Alcohol Withdrawal?: No Have you ever Experienced Withdrawal Seizures?: No Have you ever Experienced Delirium Tremens(DT)s?: No Have you ever undergone Alcohol Rehabilitation Treatment (i.e, inpt ot outpatient treatment programs)?: No Have you ever Experienced Blackouts?: No Have you ever Combined Alcohol with other Downers within the last 90 days?: No Have you ever Combined Alcohol with any other Substance of Abuse during the last 90 days?: No Positive Blood Alcohol level on Presentation? [PCS.BAL]: No Evidence of Increased Autonomic Activity (i.e. HR>120, tremor, sweating, agitation, nausea)?: No Result: 0
[2025-09-15 23:22] LABS: Abs Immature Grans 0.12 10^3/uL (0.0-0.06); HCT 34.0 % (40.0-50.0); HGB 11.0 g/dL (13.5-17.5); Immature Grans % 0.6 %; MCH 29.9 pg (27.0-33.0); MCHC 32.4 % (32.0-36.0); MCV 92 fL (80-95); MPV 8.6 fL (8.0-11.0); Platelet Count 461 10^3/uL (130-400); RBC 3.68 10^6/uL (4.36-5.78); RDW 13.2 % (11.8-14.1); RDW-SD 44.3 fL; WBC 18.70 10^3/uL (4.4-10.8)
[2025-09-15] MEDS: Aspirin 81 MG CHEW 324 MG CH (23:24)
[2025-09-15 23:37] LABS: INR 1.1 (0.9-1.1); PTT Activated 30.5 sec (20.6-30.2); Prothrombin Time 11.1 sec (9.1-11.1)
[2025-09-15 23:40] LABS: Lipase 37 U/L (<53); Troponin I 12 ng/L (<54)
[2025-09-15 23:42] LABS: ALT 16 U/L (10-49); AST 16 U/L (<34); Albumin 4.2 g/dL (3.2-5.0); Alkaline Phosphatase 65 U/L (46-116); Anion Gap 9.6 mmol/L (3-11); BUN 39 mg/dL (9-23); Bilirubin, Total 0.70 mg/dL (0.2-1.2); CO2 22.4 mmol/L (20.0-31.0); Calcium 8.7 mg/dL (8.3-10.6); Chloride 108 mmol/L (98-107); Glucose 160 mg/dL (74-106); Magnesium 2.0 mg/dL (1.6-2.6); Potassium 5.0 mmol/L (3.5-5.1); Sodium 140 mmol/L (136-145); Total Protein 6.9 g/dL (5.7-8.2)
--- NOTE | 2025-09-15 23:45 | RT.EKG_ITS ---
APPROVED REPORT Exam: Resting ECG Reason for Exam: EKG change Patient Location: E HR:55 bpm ECG Measurements Heart Rate 55 AXIS ME [id number] P [id number] QRSd 85 QRS 64 QT 448 T 36 QTc 430 Conclusion Atrial flutter...A-rate [address] elevation, lateral leads...ST >0.06mV, I aVL V5 V6 no ST segment or T wave abnormalities to suggest occlusive AR
[2025-09-15] MEDS: Normal Saline Flush 10 ML SYR IVP (23:46)
[2025-09-15] MEDS: Omnipaque 350 MG/ML 100 ML BTL IJ (23:46)
[2025-09-15] MEDS: Normal Saline - Diluent 50 ML VIAL IJ (23:46)
--- NOTE | 2025-09-15 23:47 | DI.CT_ITS ---
Exam(s) CT CHEST PE CTA EXAM: CT CHEST PE CTA CLINICAL HISTORY: Chest pain concern for PE. TECHNIQUE: Imaging Protocol: CT angiography of the chest was performed using pulmonary embolus protocol. Multi planar reconstructions were performed. CONTRAST MATERIAL: Intravenous: Omnipaque 350 Contrast volume: 70 cc COMPARISON: No exams were available for comparison FINDINGS: CHEST: PULMONARY ARTERIES: There are no intraluminal filling defects to suggest acute pulmonary emboli. LUNGS: There is a very small left pleural effusion. Mild atelectasis in left lung base posterior basal segment left lower lobe. No concerning lung nodules.. MEDIASTINUM: Slightly enlarged bilateral hilar lymph nodes. No subcarinal adenopathy. There is no adenopathy in the anterior mediastinal fat. CARDIAC: Heart size is upper normal. There is no pericardial effusion.Caliber of the thoracic aorta is within normal limits. No evidence of dissection. Incidentally noted is independent origin of the left vertebral artery off of the aortic arch. There is no significant shift of the interventricular septum. PARTIALLY VISUALIZED UPPERMOST ABDOMEN: Cholelithiasis. There are multiple tiny layering gallstones on the dependent wall of the partially included gallbladder. Gallbladder appears somewhat distended but not obviously edematous. Please note the entire gallbladder is not included in the field of view. OSSEOUS: No significant osseous lesions.No fractures. IMPRESSION: 1. No evidence of acute pulmonary emboli. No evidence of pulmonary infarction. 2. There is mild atelectasis in the left lower lobe and a very small left pleural effusion. 3. Slightly enlarged bilateral hilar lymph nodes. No mediastinal lymphadenopathy evident. Cholelithiasis incidentally noted. Please note that the gallbladder is only partially included in the field of view of this chest study. Preliminary virtual Radiology report was reviewed RADIATION DOSE DELIVERED: 146.58mGy.cm Total DLP DATA REPOSITORY: All CT scans at this facility are submitted to the National Radiology Data Registry (NRDR) Dose Index Registry (DIR) with the [employer] (A[employer]). RADIATION OPTIMIZATION: All CT scans at this facility use at least one of these dose optimization techniques: automated exposure control; mA and/or kV adjustment per patient size (includes targeted exams where dose is matched to clinical indication); or iterative reconstruction.
[2025-09-15 23:51] LABS: Lab Add On Test DONE
[2025-09-16] VITALS (52 sets, daily range): BP systolic 66–156; BP diastolic 25–66; PULSE 44–101; RESP 14–32; O2SAT 90–98
[2025-09-16] LABS: ESR 24 mm/hr (0-20)
[2025-09-16 00:07] LABS: C-Reactive Protein 4.41 mg/dL (<=0.50)
--- NOTE | 2025-09-16 00:12 | DI.VRAD_ITS ---
PROCEDURE INFORMATION: Exam: CTA Chest With Contrast Exam date and time: 09/15/2025 11:20 PM Age: 75 years old Clinical indication: Chest pressure; Chest pain concern for pe TECHNIQUE: Imaging protocol: Computed tomographic angiography of the chest with contrast. Exam focused on the arteries. 3D rendering (Not supervised by radiologist): MIP and/or 3D reconstructed images were created by the technologist. Radiation optimization: All CT scans at this facility use at least one of these dose optimization techniques: automated exposure control; mA and/or kV adjustment per patient size (includes targeted exams where dose is matched to clinical indication); or iterative reconstruction. Contrast material: [id number]; Contrast volume: 70 ml; Contrast route: INTRAVENOUS (IV); COMPARISON: No relevant prior studies available. FINDINGS: Pulmonary arteries: No evidence of pulmonary embolism. Aorta: Moderate atherosclerotic calcifications of the thoracic aorta. Thyroid: No thyroid lesions. No thyroid enlargement. Trachea: The central airways clear. Lungs: Linear bibasilar opacities most consistent with subsegmental atelectasis. Pleural spaces: Trace left pleural effusion. Heart: No cardiomegaly or pericardial effusion. Lymph nodes: No axillary adenopathy. No axillary adenopathy. Bones/joints: Unremarkable. No acute fracture. Soft tissues: Soft tissues are unremarkable as visualized. Soft tissues are unremarkable as visualized. IMPRESSION: 1. No evidence of pulmonary embolism. 2. Trace left pleural effusion. Dictated and Authenticated by: Juana Parson MD. Orderin Barbara Johnston MD
--- NOTE | 2025-09-16 00:15 | RT.EKG_ITS ---
APPROVED REPORT Exam: Resting ECG Reason for Exam: chest pain Patient Location: E HR:93 bpm ECG Measurements Heart Rate 93 AXIS [place] 188 P -61 QRSd 85 QRS 66 QT 414 T 45 QTc 529 Conclusion Sinus or ectopic atrial rhythm...P axis (-45,135) Sinus pause...long R-R interval, normal QRSd Prolonged QT interval...QTc >500mS no ST segment or T wave abnormalities to suggest occlusive [place]
--- NOTE | 2025-09-16 00:15 | DI.CT_ITS ---
Exam(s) CT THORAX ABD/PEL CTA EXAM: CT THORAX ABD/PEL CTA CLINICAL HISTORY: eval for aortic dissection. TECHNIQUE: Imaging Protocol: Axial computed tomography images with coronal and sagittal reformatted images were created and reviewed CONTRAST MATERIAL: Intravenous: Omnipaque 350 Contrast volume:70 mL Oral: None COMPARISON: No exams were available for comparison FINDINGS: CHEST: AORTA:The diameter of the ascending thoracic aorta is normal as is the diameter of the aortic arch and descending thoracic aorta. There is no evidence of aortic dissection. There is independent origin of the left vertebral artery off of the aortic arch incidentally noted. The abdominal aorta is moderately atherosclerotic but not enlarged. Similar findings in the common iliac arteries. There is mild fusiform dilatation of the distal left common iliac artery which exhibits maximum diameter of 1 point 4 cm. There is no tight stenosis in the iliac arteries. The common femoral arteries are patent as are the partially visualized proximal SFA arteries. ABDOMEN: GI: There is no ascites. No evidence of bowel obstruction, free air, nor abscess. LIVER: There are no focal hepatic lesions nor dilatation of intrahepatic ducts. GALLBLADDER/BILIARY: There are multiple tiny layering hyperdense calculi on the dependent wall the gallbladder near the neck region and the gallbladder is moderately distended, a exhibiting a diameter of 5.6 cm. However, the gallbladder does not appear edematous and there is no pericholecystic fluid. There also no radiopaque calculi evident in the cystic duct and nondilated CBD. PANCREAS: No evidence of pancreatic mass nor dilatation of the pancreatic duct. SPLEEN: Spleen is not enlarged. There are no intrasplenic lesions. Splenic and portal veins are patent. ADRENALS: There are no significant adrenal masses. KIDNEYS: No cysts evident. No calculi nor hydronephrosis. No solid renal masses. ABDOMINAL AORTA: Atherosclerotic but not enlarged. See above. LYMPH NODES: There is no retroperitoneal nor para-aortic adenopathy. No obvious mesenteric masses. ABDOMINAL WALL: No evidence of significant anterior abdominal wall hernia. GI: There is no evidence of bowel obstruction, free air, nor abscess. PELVIS: LYMPH NODES: There is no intrapelvic nor inguinal adenopathy. GI: No evidence of appendicitis.There are diverticuli in the sigmoid but no evidence of acute diverticulitis. Uncomplicated diverticuli are also noted left side of the colon at and distal to the splenic flexure. There is a moderate amount of fecal material throughout the colon. URINARY BLADDER: Somewhat difficult to visualize adequately because of beam hardening artifact from bilateral hip prostheses. No obvious findings in the urinary bladder REPRODUCTIVE: Prostate is partially obscured by beam hardening artifact from bilateral hip prosthesis. It contains calcifications. OSSEOUS: There are bilateral hip prostheses. No fractures evident. No significant osseous lesions evident. IMPRESSION: 1. No evidence of aortic aneurysm nor dissection. No pericardial effusion. There is moderate atherosclerotic involvement of the abdominal aorta and iliac arteries.. 2. Cholelithiasis without evidence of obvious acute cholecystitis. 3. Small left pleural effusion and mild atelectasis in the posterior basal segment of the left lower lobe. Preliminary virtual Radiology report was reviewed. RADIATION DOSE DELIVERED: 1,237.47mGy.cm Total DLP DATA REPOSITORY: All CT scans at this facility are submitted to the National Radiology Data Registry (NRDR) Dose Index Registry (DIR) with the [employer] (ACR). RADIATION OPTIMIZATION: All CT scans at this facility use at least one of these dose optimization techniques: automated exposure control; mA and/or kV adjustment per patient size (includes targeted exams where dose is matched to clinical indication); or iterative reconstruction.
[2025-09-16 00:21] LABS: Glucose Negative (Negative)
[2025-09-16] MEDS: MORPHine 10 MG/ML VIAL 4 MG IVP ×3 (00:21→04:30)
[2025-09-16 00:26] LABS: Troponin I 13 ng/L (<54)
[2025-09-16] MEDS: Normal Saline Flush 10 ML SYR IVP (00:43)
[2025-09-16] MEDS: Normal Saline - Diluent 50 ML VIAL IJ (00:43)
[2025-09-16] MEDS: Omnipaque 350 MG/ML 100 ML BTL IJ (00:44)
[2025-09-16] MEDS: Normal Saline 1,000 ML 1000 ML IV (00:49)
--- NOTE | 2025-09-16 01:02 | DI.VRAD_ITS ---
PROCEDURE INFORMATION: Exam: CTA Chest With Contrast CTA Abdomen and Pelvis With Contrast Exam date and time: 09/16/2025 12:23 AM Age: 75 years old Clinical indication: Chest pressure; Other: Chest pain; Prior surgery; Surgery date: <1 month; Surgery type: Hip replacement; Eval for aortic dissection TECHNIQUE: Imaging protocol: Computed tomographic angiography of the chest with contrast. Exam focused on the arteries. Computed tomographic angiography of the abdomen and pelvis with contrast. Exam focused on the arteries. 3D rendering (Not supervised by radiologist): MIP and/or 3D reconstructed images were created by the technologist. Radiation optimization: All CT scans at this facility use at least one of these dose optimization techniques: automated exposure control; mA and/or kV adjustment per patient size (includes targeted exams where dose is matched to clinical indication); or iterative reconstruction. Contrast material: [id number]; Contrast volume: 70 ml; Contrast route: INTRAVENOUS (IV); COMPARISON: CT CHEST PE CTA 09/15/2025 11:20 PM FINDINGS: VASCULATURE: Pulmonary arteries: Normal. No pulmonary emboli. Aorta: Moderate atherosclerotic calcifications of the thoracic aorta. There is severe diffuse atherosclerotic disease of the abdominal aorta. Celiac and mesenteric arteries: Moderate atherosclerotic narrowing of the ostium of the celiac and superior mesenteric artery. No evidence of occlusion. Renal arteries: No occlusion or significant stenosis. Right iliac arteries: No occlusion or significant stenosis. Left iliac arteries: No occlusion or significant stenosis. Thyroid: No thyroid lesions. No thyroid enlargement. CHEST: Trachea: The central airways clear. Lungs: Linear bibasilar opacities most consistent with subsegmental atelectasis. Pleural spaces: Unremarkable. No pneumothorax. No pleural effusion. Heart: No cardiomegaly or pericardial effusion. ABDOMEN AND PELVIS: Liver: The liver is unremarkable. Gallbladder and biliary ducts: Multiple gallstones are present. No pericholecystic inflammatory changes to suggest cholecystitis. Pancreas: The pancreas is unremarkable. Spleen: No splenomegaly. No lesions. Adrenal glands: The adrenal glands are unremarkable. Kidneys and ureters: The kidneys are normal. Stomach and bowel: Moderate stool throughout the colon and rectum. Colonic diverticulosis without evidence of diverticulitis. Appendix: Normal appendix. Intraperitoneal space: Unremarkable. No free air. No significant fluid collection. Urinary bladder: Unremarkable. No mass. Reproductive: Unremarkable as visualized. Lymph nodes: No axillary adenopathy. Bones/joints: Mild multilevel degenerative changes thoracic spine. Bilateral hip prosthesis noted. No evidence of malalignment. The lumbar spine demonstrates moderate degenerative changes at multiple levels. Soft tissues: Soft tissues are unremarkable as visualized. Bilateral fat containing inguinal hernias. Moderate right lateral hip soft tissue edema from recent surgery. Other findings: Small left effusion. IMPRESSION: Small left effusion. Chronic noncritical findings as described above. No evidence of aortic aneurysm or dissection. Dictated and Authenticated by: Juana Parson MD. Orderin Barbara Johnston MD
[2025-09-16 01:08] LABS: Lab Add On Test DONE
[2025-09-16] MEDS: nitroGLYcerin 0.4 MG TAB (01:15)
[2025-09-16] MEDS: nitroGLYcerin 0.4 MG TAB SL ×5 (01:25→03:02)
[2025-09-16 01:26] LABS: TSH (W/Ref FT4) 3.69 uIU/mL (0.55-4.78)
[2025-09-16 01:46] LABS: BE (Venous) -5 mmol/L (-2-3); HCO3 (Venous) 21 mmol/L (23-28); O2 Sat (Venous) 49 %; TCO2 (Venous) 20 mmol/L (24-29); pCO2 (Venous) 41 mmHg (41-51); pO2 (Venous) 30 mmHg
[2025-09-16 02:03] LABS: Procalcitonin < 0.10 ng/mL
[2025-09-16] MEDS: Heparin in 0.45% NaCl 25,000 UNIT/250 ML BAG 9.5 UNIT IVINF (02:04)
[2025-09-16] MEDS: Clopidogrel 300 MG TAB PO (02:05)
[2025-09-16 02:07] LABS: Troponin I 17 ng/L (<54)
--- NOTE | 2025-09-16 02:33 | W.PM.HP.N ---
Date of service: 09/16/25 Time of Service: 02:33 Assessment and Plan Assessment and plan (1) Chest pain: Status: Acute Assessment and plan: Patient has been [place] [facility] [place] and just waiting for beds for placement. Continue with heparin and Plavix. Will use morphine for pain control as needed. (2) ACS (acute coronary syndrome): Status: Acute Assessment and plan: As above (3) Elevated lipids: Status: Acute Assessment and plan: Continue with current medications might need to have his dose maximized but will defer to cardiology. (4) Atrial flutter: Status: Acute Assessment and plan: This was found briefly in the ED on telemetry but has not resolved. (5) BPH w urinary obs/LUTS: Status: Acute Assessment and plan: Continue with his current medications. (6) Leukocytosis: Status: Acute Assessment and plan: Patient does have leukocytosis and was given Levaquin and Zosyn in the ED. I do not see any clear signs of infection and this could certainly be reactive. Will wait for culture results or more clinical data before continue antibiotics. Procalcitonin level was benign but he did have an elevated CRP of 4.41 which was again could be reactive. (7) Prediabetes: Status: Acute Assessment and plan: The patient had been taking low-dose metformin which I will hold secondary to to dilute his while he is here in most likely had diluted during his. I will add sliding scale insulin with coverage and monitoring. History of Present Illness History of Present Illness Chief Complaint: chest pain Narrative: Mr Sandoval is a very pleasant 75-year-old gentleman who 3 weeks ago had a right hip surgery done at [facility]. Patient had been doing fairly well until today with time he developed substernal chest pain with some radiation to his back. Patient denied diaphoresis denied any arm pain or jaw pain. Patient denies any history of stress test or cardiac cath in the past. He did a get a echocardiogram on 1025 which was essentially benign EF of 60%. There is show mild tricuspid regurgitation. The patient came into the ED was given morphine nitro aspirin Plavix and his symptoms have resolved completely. At this point our ED physician reached out to [facility] who recommended admission and further intervention but no beds were available. The clinical case was discussed with Dr. Gutiérrez and the patient was accepted into Dr. Lawson's service. Upon my discussion with the patient he states he is approximately 4 out of 10 pain and is otherwise without complaint. He does have a family history of heart disease as well as diabetes. Patient does take his meds as prescribed. Patient is a full code. CT with contrast of the chest done on admission did not show pulmonary emboli. Review of Systems All systems reviewed & are unremarkable except as noted in HPI and below PFSH All Active Problems (Updated 09/16/25 @ 02:40 by Dougie Ly MD) Prediabetes (Acute) Leukocytosis (Acute) Pleural effusion (Acute) Atrial flutter (Acute) Atypical angina (Acute) ACS (acute coronary syndrome) (Acute) Elevated serum creatinine (Acute ~12/2024) Osteoarthritis of right hip (Acute ~08/2024) 08/26/24 Orthopedics Low vitamin B12 level (Acute) Achilles tendon contracture, bilateral (Acute) Diabetes type 2, controlled (Acute) Foot pain (Acute) Metatarsalgia of both feet (Acute) Neuropathy (Acute 07/29/21) Podiatry/[place] Tubular adenoma (Acute 04/04/21) [facility] Bilateral foot pain (Acute) Prostate nodule (Acute 04/04/21) PSA,MARCOS 6 months [facility] [place] annual wellness visit, subsequent (Acute) Pre-diabetes (Acute) Failure to attend screening for abdominal aortic aneurysm (AAA) (Acute) Facial lesion (Acute) 03/27/20 Squamous Cell Carcinoma, Left Zygoma. Skin Shave Biopsy Derm: Jennifer Hector 08/08/21 f/u Dr Hector, recommend 1 yr f/u Anxiety (Chronic) SOB (shortness of breath) (Acute) Chest pain (Acute) Sciatica (Acute 05/18/14) Impaired fasting glucose (Acute 07/27/15) Generalized osteoarthritis (Acute 07/27/15) Essential hypertension (Acute 07/27/15) Erectile dysfunction (Acute 05/18/14) Elevated lipids (Acute 05/18/14) PCEq 11.7%%: LDL baseline 103 BPH w urinary obs/LUTS (Acute 08/01/16) Medical History (Updated 09/16/25 @ 02:40 by Dougie Ly MD) SCC (squamous cell carcinoma) (~03/2020) L zygoma Actinic keratitis (~08/2022) 08/12/22 R and L ear, Dr Hector 08/12/23 brow line - cryo treated Elevated PSA 06/02 1.55 at Surgical History S/P colonoscopy 04/04/[address] [facility] Endoscopy 01/19/24[place] [place] h/o adenomatous polyps. PATHOLOGY: Tubular adenomas x2 Vasectomy (10/11/91) Replacement of total knee joint (08/13/15) Bilateral done [facility] Total replacement of hip (10/08/06) Family History Mother Essential hypertension Father Alcohol abuse Social History Smoking/Tobacco Use Status: Former Tobacco Use Quit Date: 10/12/69 Smoking risk assessment performed?: Yes Alcohol Intake: current Alcohol Intake frequency: a few times a week Drug use: Never Substance use type: does not use Caregiver/Support person: No Household members: spouse Number of Children: 2 Communication Needs: None Current gender identity: male What is your relationship status?: Panel score (0-1 are the most socially isolated patients): 1 What type of physical activity do you participate in: walking and resistance training Duration: 60-90 minutes/day Frequency: 3-4 times per week Seatbelt use: always Meds Allergies and Home Medications Allergies Allergy/AdvReac Type Severity Reaction Status Date / Time Penicillins Allergy Severe FACIAL, Verified 09/15/25 22:59 HAND SWELLING sildenafil citrate (From AdvReac Intermediate vision Verified 09/15/25 22:59 Viagra) very bright at 100mg dose Home Medications ?Medication ?Instructions ?Recorded ?Confirmed ?Type multivitamin (Daily Multi-Vitamin 1 ea PO DAILY 02/03/13 09/15/25 History tablet) acetaminophen 500 mg tablet 1,000 mg PO Q4H PRN 08/16/15 09/15/25 History naproxen sodium 220 mg tablet 220 mg PO BID PRN 08/12/18 09/15/25 History vitamins A,C,B-nipe-edqsjn 4,296 1 cap PO BID 07/08/23 09/15/25 History mcg-226 mg-90 mg capsule (PreserVision AREDS) carboxymethylcellulose sodium ophthalmic (eye) PRN 11/06/23 06/20/25 History [Artificial Tears (cmc)] lisinopril 20 mg tablet 20 mg PO DAILY #90 tab-caps 12/13/24 09/15/25 Rx metformin 500 mg tablet 500 mg PO BID #180 tabs 12/13/24 09/15/25 Rx simvastatin 20 mg tablet 20 mg PO DAILY #90 tab-caps 12/13/24 09/15/25 Rx tamsulosin 0.4 mg capsule 0.4 mg PO DAILY #90 tab-caps 12/13/24 09/15/25 Rx aspirin 81 mg tablet,delayed 81 mg PO DAILY 09/15/25 09/15/25 History release naproxen 500 mg tablet 500 mg PO Q8H PRN pain 09/15/25 09/15/25 History oxycodone 5 mg tablet 5 mg PO Q8H PRN pain 09/15/25 09/15/25 History Exam Narrative Exam Narrative: HEENT normocephalic atraumatic mucous membranes moist Neck no lymphadenopathy no JVD no thyromegaly Cardiovascular regular rate and rhythm no murmurs gallops Lungs clear to auscultation bilaterally with good air exchange Abdomen soft nontender nondistended bowel sounds active Extremity 1+ lower extremity edema right lower extremity Neurologic nonfocal Psych alert and oriented x 3 no apparent distress Results Labs 09/15/25 23:13 09/15/25 23:13 Labs: Laboratory Results - last 24 hr 09/15/25 09/15/25 09/16/25 23:12 23:13 00:00 WBC 18.70 H RBC 3.68 L Hgb 11.0 L Hct 34.0 L MCV 92 MCH 29.9 MCHC 32.4 RDW 13.2 Plt Count 461 H MPV 8.6 Immature Gran % 0.6 Neutrophils % 84.3 Lymphocytes % 5.3 Monocytes % 7.8 Eosinophils % 1.6 Basophils % 0.4 Nucleated RBC % 0.0 Absolute Neutrophils 15.76 H Absolute Lymphocytes 0.99 L Absolute Monocytes 1.46 H Absolute Eosinophils 0.30 Absolute Basophils 0.07 ESR 24 H PT 11.1 INR 1.1 APTT 30.5 H VBG pH VBG pCO2 VBG pO2 VBG HCO3 VBG Total CO2 VBG O2 Saturation VBG Base Excess VBG Lactate Sodium 140 Potassium 5.0 Chloride 108 H Carbon Dioxide 22.4 Anion Gap 9.6 BUN 39 H Creatinine 1.29 H Est GFR (CKD-EPI 2020) 54.06 Glucose 160 H Calcium 8.7 Magnesium 2.0 Total Bilirubin 0.70 AST 16 ALT 16 Alkaline Phosphatase 65 Troponin I 12 C-Reactive Protein 4.41 H NT-Pro-B Natriuret Pep 1325 H Total Protein 6.9 Albumin 4.2 Lipase 37 Procalcitonin TSH Urine Color Yellow Urine Clarity Clear Urine pH 5.5 Ur Specific [place] 1.010 Urine Protein Negative Urine Ketones Negative Urine Blood Negative Urine Nitrite Negative Urine Bilirubin Negative Urine Urobilinogen 0.2 Ur Leukocyte Esterase Negative Urine Glucose Negative Add-On Test Request DONE 09/16/25 09/16/25 00:04 01:44 WBC RBC Hgb Hct MCV MCH MCHC RDW Plt Count MPV Immature Gran % Neutrophils % Lymphocytes % Monocytes % Eosinophils % Basophils % Nucleated RBC % Absolute Neutrophils Absolute Lymphocytes Absolute Monocytes Absolute Eosinophils Absolute Basophils ESR PT INR APTT VBG pH 7.32 VBG pCO2 41 VBG pO2 30 VBG HCO3 21 L VBG Total CO2 20 L VBG O2 Saturation 49 VBG Base Excess -5 L VBG Lactate 0.8 Sodium Potassium Chloride Carbon Dioxide Anion Gap BUN Creatinine Est GFR (CKD-EPI 2020) Glucose Calcium Magnesium Total Bilirubin AST ALT Alkaline Phosphatase Troponin I 13 17 C-Reactive Protein NT-Pro-B Natriuret Pep Total Protein Albumin Lipase Procalcitonin < 0.10 TSH 3.69 Urine Color Urine Clarity Urine pH Ur Specific [place] Urine Protein Urine Ketones Urine Blood Urine Nitrite Urine Bilirubin Urine Urobilinogen Ur Leukocyte Esterase Urine Glucose Add-On Test Request DONE Last Vital Signs Temp 36.3 C L 09/15/25 22:54 Pulse 97 H 09/16/25 01:31 Resp 22 09/16/25 01:31 BP 127/48 L 09/16/25 01:31 Pulse Ox 91 L 09/16/25 01:31 VTE Prohylaxis Risk Level: Moderate/High Risk Contraindications: None Prophylaxis: Patient anticoagulated and Pharmacologic PAWSS Have you Been Recently Intoxicated or Drunk Within the Last 30 days?: No Have you Ever Experienced Previous Episodes of Alcohol Withdrawal?: No Have you ever Experienced Withdrawal Seizures?: No Have you ever Experienced Delirium Tremens(DT)s?: No Have you ever undergone Alcohol Rehabilitation Treatment (i.e, inpt ot outpatient treatment programs)?: No Have you ever Experienced Blackouts?: No Have you ever Combined Alcohol with other Downers within the last 90 days?: No Have you ever Combined Alcohol with any other Substance of Abuse during the last 90 days?: No Positive Blood Alcohol level on Presentation? [PCS.BAL]: No Evidence of Increased Autonomic Activity (i.e. HR>120, tremor, sweating, agitation, nausea)?: No Result: 0 Time Spent Time spent with Patient: 40-54 minutes Time was spent: preparing to see the patient(eg.review tests), obtaining and/or reviewing separately otained hiistory, ordering medications,tests, procedures, referring, communicating with other health home care specialist, indepentently interpreting results, counseling the patient and care coordination
--- NOTE | 2025-09-16 02:41 | W.PCEDHO ---
Registration Status: REG ER Primary Language: Preferred Language: Yi ED Information & Data Chief Complaint Chest Pain 09/15/25 23:16 Triage Note 7 of 10 stabbing non 09/15/25 22:54 radiating pain across chest made worse with breathing/ activity. Pain started at 1700 today and got worse over time. Recent surgery. 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) Most Recent Vital Signs Temperature 36.3 C L 09/15/25 22:54 Pulse 97 H 09/16/25 01:31 Pulse 91 H 09/16/25 01:31 Respiratory Rate 22 09/16/25 01:31 Respiratory Effort Normal 09/15/25 23:17 Respiratory Depth Normal 09/15/25 23:17 Respiratory Pattern Normal 09/15/25 23:17 Blood Pressure 127/48 L 09/16/25 01:31 Blood Pressure Mean 73 09/16/25 01:31 Blood Pressure Position Sitting 09/15/25 22:54 Pulse Oximetry 91 L 09/16/25 01:31 Oxygen Delivery Method Room Air 09/15/25 22:54 Oxygen Flow Rate 0 09/15/25 22:54 Allergies Penicillins Allergy (Severe, Verified 09/15/25 22:59) FACIAL, HAND SWELLING sildenafil citrate (From Viagra) Adverse Reaction (Intermediate, Verified 09/15/25 22:59) vision very bright at 100mg dose Active Medications Generic Name Dose Route Start Last Admin Trade Name Freq PRN Reason Stop Dose Admin Heparin Sodium/Sodium Chloride 25,000 unit in 250 mls @ 0 mls/hr 09/16/25 02:00 09/16/25 02:04 IVINF 9.5 mls/hr INFUSION LYNN 9.5 mls/hr Protocol Administration Per Protocol Iohexol 100 ml 09/15/25 23:45 09/15/25 23:46 Omnipaque 350 Mg/Ml 100 Ml Btl IJ 01/04/26 23:59 70 ml DIRECTED LYNN Administration Iohexol 100 ml 09/16/25 00:30 09/16/25 00:44 Omnipaque 350 Mg/Ml 100 Ml Btl IJ 10/16/25 23:59 70 ml DIRECTED LYNN Administration Morphine Sulfate 4 mg 09/16/25 00:16 09/16/25 00:21 Morphine 10 Mg/Ml Vial IVP 4 mg DIRECTED PRN Administration Nitroglycerin 0.4 mg 09/16/25 01:24 09/16/25 01:29 Nitroglycerin 0.4 Mg Tab SL 0.4 mg Q5 MIN PRN X3 PRN Administration Sodium Chloride 50 ml 09/15/25 23:45 09/15/25 23:46 Normal Saline - Diluent 50 Ml Vial IJ 50 ml DIRECTED LYNN Administration Sodium Chloride 0 ml 09/15/25 23:45 09/15/25 23:46 Normal Saline Flush 10 Ml Syr IVP 10 ml PRN PRN Administration Sodium Chloride 50 ml 09/16/25 00:30 09/16/25 00:43 Normal Saline - Diluent 50 Ml Vial IJ 50 ml DIRECTED LYNN Administration Sodium Chloride 0 ml 09/16/25 00:21 09/16/25 00:43 Normal Saline Flush 10 Ml Syr IVP 10 ml PRN PRN Administration IV IV Catheter Type [] Saline Lock IV Catheter Type [Right Saline Lock Antecubital] IV Catheter Gauge [] 18 IV Catheter Gauge [Right 20 Antecubital] Diet Orders Category Date Time Status Nothing Per Oral [DIET] Nutrition 09/16/25 02:29 Active Diagnostics 09/16/25 09/16/25 09/16/25 Range/Units Unknown 05:35 01:44 WBC Pending (4.4-10.8) 10^3/uL RBC Pending (4.36-5.78) 10^6/uL Hgb Pending (13.5-17.5) g/dL Hct Pending (40.0-50.0) % MCV Pending (80-95) fL MCH Pending (27.0-33.0) pg MCHC Pending (32.0-36.0) % RDW Pending (11.8-14.1) % Plt Count Pending (130-400) 10^3/uL MPV Pending (8.0-11.0) fL Immature Gran % Pending % Neutrophils % Pending % Lymphocytes % Pending % Monocytes % Pending % Eosinophils % Pending % Basophils % Pending % Nucleated RBC % (0.0-0.3) % Absolute Neutrophils Pending (1.2-6.7) 10^3/uL Absolute Lymphocytes Pending (1.2-3.4) 10^3/uL Absolute Monocytes Pending (0.1-0.8) 10^3/uL Absolute Eosinophils Pending (0.0-0.7) 10^3/uL Absolute Basophils Pending (0.0-0.2) 10^3/uL ESR (0-20) mm/hr PT (9.1-11.1) sec INR (0.9-1.1) APTT (20.6-30.2) sec VBG pH 7.32 (7.31-7.41) VBG pCO2 41 (41-51) mmHg VBG pO2 30 mmHg VBG HCO3 21 L (23-28) mmol/L VBG Total CO2 20 L (24-29) mmol/L VBG O2 Saturation 49 % VBG Base Excess -5 L (-2-3) mmol/L VBG Lactate 0.8 (<or=2.0) mmol/L Sodium Pending (136-145) mmol/L Potassium Pending (3.5-5.1) mmol/L Chloride Pending (98-107) mmol/L Carbon Dioxide Pending (20.0-31.0) mmol/L Anion Gap Pending (3-11) mmol/L BUN Pending (9-23) mg/dL Creatinine Pending (0.73-1.18) mg/dL Est GFR (CKD-EPI 2020) Pending (mL/min/1.73m2) Glucose Pending (74-106) mg/dL Calcium Pending (8.3-10.6) mg/dL Magnesium (1.6-2.6) mg/dL Total Bilirubin Pending (0.2-1.2) mg/dL AST Pending (<34) U/L ALT Pending (10-49) U/L Alkaline Phosphatase Pending (46-116) U/L Troponin I 17 (<54) ng/L C-Reactive Protein (<=0.50) mg/dL NT-Pro-B Natriuret Pep (<300) pg/mL Total Protein Pending (5.7-8.2) g/dL Albumin Pending (3.2-5.0) g/dL Lipase (<53) U/L Procalcitonin ng/mL TSH (0.55-4.78) uIU/mL Urine Color (Yellow) Urine Clarity (Clear) Urine pH (5-8) Ur Specific [place] (1.005-1.025) Urine Protein (Neg-Trace) mg/dL Urine Ketones (Negative) mg/dL Urine Blood (Negative) Urine Nitrite (Negative) Urine Bilirubin (Negative) Urine Urobilinogen (Up to 0.2) mg/dL Ur Leukocyte Esterase (Negative) Urine Glucose (Negative) mg/dL Add-On Test Request 09/16/25 09/16/25 09/15/25 Range/Units 00:04 00:00 23:13 WBC 18.70 H (4.4-10.8) 10^3/uL RBC 3.68 L (4.36-5.78) 10^6/uL Hgb 11.0 L (13.5-17.5) g/dL Hct 34.0 L (40.0-50.0) % MCV 92 (80-95) fL MCH 29.9 (27.0-33.0) pg MCHC 32.4 (32.0-36.0) % RDW 13.2 (11.8-14.1) % Plt Count 461 H (130-400) 10^3/uL MPV 8.6 (8.0-11.0) fL Immature Gran % 0.6 % Neutrophils % 84.3 % Lymphocytes % 5.3 % Monocytes % 7.8 % Eosinophils % 1.6 % Basophils % 0.4 % Nucleated RBC % 0.0 (0.0-0.3) % Absolute Neutrophils 15.76 H (1.2-6.7) 10^3/uL Absolute Lymphocytes 0.99 L (1.2-3.4) 10^3/uL Absolute Monocytes 1.46 H (0.1-0.8) 10^3/uL Absolute Eosinophils 0.30 (0.0-0.7) 10^3/uL Absolute Basophils 0.07 (0.0-0.2) 10^3/uL ESR (0-20) mm/hr PT 11.1 (9.1-11.1) sec INR 1.1 (0.9-1.1) APTT 30.5 H (20.6-30.2) sec VBG pH (7.31-7.41) VBG pCO2 (41-51) mmHg VBG pO2 mmHg VBG HCO3 (23-28) mmol/L VBG Total CO2 (24-29) mmol/L VBG O2 Saturation % VBG Base Excess (-2-3) mmol/L VBG Lactate (<or=2.0) mmol/L Sodium 140 (136-145) mmol/L Potassium 5.0 (3.5-5.1) mmol/L Chloride 108 H (98-107) mmol/L Carbon Dioxide 22.4 (20.0-31.0) mmol/L Anion Gap 9.6 (3-11) mmol/L BUN 39 H (9-23) mg/dL Creatinine 1.29 H (0.73-1.18) mg/dL Est GFR (CKD-EPI 2020) 54.06 (mL/min/1.73m2) Glucose 160 H (74-106) mg/dL Calcium 8.7 (8.3-10.6) mg/dL Magnesium 2.0 (1.6-2.6) mg/dL Total Bilirubin 0.70 (0.2-1.2) mg/dL AST 16 (<34) U/L ALT 16 (10-49) U/L Alkaline Phosphatase 65 (46-116) U/L Troponin I 13 12 (<54) ng/L C-Reactive Protein (<=0.50) mg/dL NT-Pro-B Natriuret Pep 1325 H (<300) pg/mL Total Protein 6.9 (5.7-8.2) g/dL Albumin 4.2 (3.2-5.0) g/dL Lipase 37 (<53) U/L Procalcitonin < 0.10 ng/mL TSH 3.69 (0.55-4.78) uIU/mL Urine Color Yellow (Yellow) Urine Clarity Clear (Clear) Urine pH 5.5 (5-8) Ur Specific [place] 1.010 (1.005-1.025) Urine Protein Negative (Neg-Trace) mg/dL Urine Ketones Negative (Negative) mg/dL Urine Blood Negative (Negative) Urine Nitrite Negative (Negative) Urine Bilirubin Negative (Negative) Urine Urobilinogen 0.2 (Up to 0.2) mg/dL Ur Leukocyte Esterase Negative (Negative) Urine Glucose Negative (Negative) mg/dL Add-On Test Request DONE 09/15/25 Range/Units 23:12 WBC (4.4-10.8) 10^3/uL RBC (4.36-5.78) 10^6/uL Hgb (13.5-17.5) g/dL Hct (40.0-50.0) % MCV (80-95) fL MCH (27.0-33.0) pg MCHC (32.0-36.0) % RDW (11.8-14.1) % Plt Count (130-400) 10^3/uL MPV (8.0-11.0) fL Immature Gran % % Neutrophils % % Lymphocytes % % Monocytes % % Eosinophils % % Basophils % % Nucleated RBC % (0.0-0.3) % Absolute Neutrophils (1.2-6.7) 10^3/uL Absolute Lymphocytes (1.2-3.4) 10^3/uL Absolute Monocytes (0.1-0.8) 10^3/uL Absolute Eosinophils (0.0-0.7) 10^3/uL Absolute Basophils (0.0-0.2) 10^3/uL ESR 24 H (0-20) mm/hr PT (9.1-11.1) sec INR (0.9-1.1) APTT (20.6-30.2) sec VBG pH (7.31-7.41) VBG pCO2 (41-51) mmHg VBG pO2 mmHg VBG HCO3 (23-28) mmol/L VBG Total CO2 (24-29) mmol/L VBG O2 Saturation % VBG Base Excess (-2-3) mmol/L VBG Lactate (<or=2.0) mmol/L Sodium (136-145) mmol/L Potassium (3.5-5.1) mmol/L Chloride (98-107) mmol/L Carbon Dioxide (20.0-31.0) mmol/L Anion Gap (3-11) mmol/L BUN (9-23) mg/dL Creatinine (0.73-1.18) mg/dL Est GFR (CKD-EPI 2020) (mL/min/1.73m2) Glucose (74-106) mg/dL Calcium (8.3-10.6) mg/dL Magnesium (1.6-2.6) mg/dL Total Bilirubin (0.2-1.2) mg/dL AST (<34) U/L ALT (10-49) U/L Alkaline Phosphatase (46-116) U/L Troponin I (<54) ng/L C-Reactive Protein 4.41 H (<=0.50) mg/dL NT-Pro-B Natriuret Pep (<300) pg/mL Total Protein (5.7-8.2) g/dL Albumin (3.2-5.0) g/dL Lipase (<53) U/L Procalcitonin ng/mL TSH (0.55-4.78) uIU/mL Urine Color (Yellow) Urine Clarity (Clear) Urine pH (5-8) Ur Specific [place] (1.005-1.025) Urine Protein (Neg-Trace) mg/dL Urine Ketones (Negative) mg/dL Urine Blood (Negative) Urine Nitrite (Negative) Urine Bilirubin (Negative) Urine Urobilinogen (Up to 0.2) mg/dL Ur Leukocyte Esterase (Negative) Urine Glucose (Negative) mg/dL Add-On Test Request DONE 09/16/25 01:15 Blood Culture - Pending Blood 09/16/25 00:59 Blood Culture - Pending Blood Intake and Output - 24 Hour Total 09/15/25 22:51 thru 09/16/25 01:33 Intake Total 1000 Balance 1000 Weight 77.111 kg Intake: IV 1000 Falls Risk Assessment History of Falls Previous History 09/15/25 22:57 Contributing Factors No Factors 09/15/25 22:57 Ambulatory Aids Uses ambulatory device 09/15/25 22:57 Tubes/Lines None 09/15/25 22:57 Gait Evaluation No gait disturbance 09/15/25 22:57 Cognition No cognitive impairment 09/15/25 22:57 Fall Total Score 30 09/15/25 22:57 Level of Risk Moderate Risk 09/15/25 22:57 Attestation Statement: By documenting the first initial, last name, and credentials of the reporting nurse below, both parties acknowledge that all relevant information regarding the patient handoff has been communicated, and that all questions have been addressed to ensure continuity and safety of care. Additional Patient Information/Comments: Report Received From: [facility]
[2025-09-16] MEDS: Acetaminophen 325 MG TAB PO (03:03)
--- NOTE | 2025-09-16 03:15 | RT.EKG_ITS ---
APPROVED REPORT Exam: Resting ECG Reason for Exam: repeat Patient Location: E HR:52 bpm ECG Measurements Heart Rate 52 AXIS OR [id number] P [id number] QRSd 93 QRS 66 QT 464 T 16 QTc 432 Conclusion Atrial fibrillation...? atrial activity ST elevation, consider anterolateral injury...ST >0.15mV, I aVL V2-V6 anteriorlateral [address] elevations not meeting occlusive [place] criteria
[2025-09-16] MEDS: Ondansetron 4 MG/2 ML VIAL IVP (03:20)
--- NOTE | 2025-09-16 03:27 | W.ED.PROC ---
Date of service: 09/16/25 Time of Service: 03:09 Medical Decision Making 0309 Patient in ED awaiting transfer to the floor, admission orders in and under the care of the hospitalist. Noted by myself on the ED monitors to have a HR in the 40's and BP 70's/40's. I went to bedside; pt diaphoretic and nauseated, RN at bedside requesting zofran. BP recycled and remained hypotensive. Pt had reportedly just received 2 of SL nitro for 8/10 back pain. Started on 2L IVFB and Dr. Ly notified, repeat EKG ordered. Dr. Ly at bedside and assumed care.. BP improving with fluids and patient reports feeling better, though pain persists.
--- NOTE | 2025-09-16 03:45 | RT.EKG_ITS ---
APPROVED REPORT Exam: Resting ECG Reason for Exam: repeat Patient Location: E HR:85 bpm ECG Measurements Heart Rate 85 AXIS ID 295 P 15 QRSd 86 QRS 68 QT 383 T 14 QTc 455 Conclusion Sinus rhythm...normal P axis, V-rate 60- 99 Prolonged ID interval...ID >220, V-rate 50- [address] elevation, lateral leads...ST >0.06mV, I aVL V5 V6 anteriorlateral ST elevations not meeting criteria for occlusive PR
--- NOTE | 2025-09-16 03:56 | W.PC.ACHO1 ---
Registration Status: REG ER Primary Language: Preferred Language: Yoruba ED Information & Data Chief Complaint Chest Pain 09/15/25 23:16 Triage Note 7 of 10 stabbing non 09/15/25 22:54 radiating pain across chest made worse with breathing/ activity. Pain started at 1700 today and got worse over time. Recent surgery. 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) Vasectomy (10/11/91) Most Recent Vital Signs Temperature 36.3 C L 09/15/25 22:54 Pulse 88 09/16/25 03:50 Pulse 88 09/16/25 03:50 Respiratory Rate 29 H 09/16/25 03:50 Respiratory Effort Normal 09/15/25 23:17 Respiratory Depth Normal 09/15/25 23:17 Respiratory Pattern Normal 09/15/25 23:17 Blood Pressure 112/61 09/16/25 03:43 Blood Pressure Mean 77 09/16/25 03:43 Blood Pressure Position Sitting 09/15/25 22:54 Pulse Oximetry 94 09/16/25 03:50 Oxygen Delivery Method Room Air 09/15/25 22:54 Oxygen Flow Rate 0 09/15/25 22:54 Pain Level 6 09/16/25 03:20 Comment Placed on 2L nasal cannula 09/16/25 02:59 Allergies Penicillins Allergy (Severe, Verified 09/15/25 22:59) FACIAL, HAND SWELLING sildenafil citrate (From Viagra) Adverse Reaction (Intermediate, Verified 09/15/25 22:59) vision very bright at 100mg dose Active Medications Generic Name Dose Route Start Last Admin Trade Name Freq PRN Reason Stop Dose Admin Acetaminophen 0 mg 09/16/25 02:28 09/16/25 03:03 Acetaminophen 325 Mg Tab PO 325 mg Q4H PRN PRN Administration Heparin Sodium/Sodium Chloride 25,000 unit in 250 mls @ 0 mls/hr 09/16/25 02:00 09/16/25 02:04 IVINF 9.5 mls/hr INFUSION LYNN 9.5 mls/hr Protocol Administration Per Protocol Iohexol 100 ml 09/15/25 23:45 09/15/25 23:46 Omnipaque 350 Mg/Ml 100 Ml Btl IJ 10/15/25 23:59 70 ml DIRECTED LYNN Administration Iohexol 100 ml 09/16/25 00:30 09/16/25 00:44 Omnipaque 350 Mg/Ml 100 Ml Btl IJ 10/16/25 23:59 70 ml DIRECTED LYNN Administration Morphine Sulfate 4 mg 09/16/25 00:16 09/16/25 00:21 Morphine 10 Mg/Ml Vial IVP 4 mg DIRECTED PRN Administration Nitroglycerin 0.4 mg 09/16/25 01:24 09/16/25 03:02 Nitroglycerin 0.4 Mg Tab SL 0.4 mg Q5 MIN PRN X3 PRN Administration Sodium Chloride 50 ml 09/15/25 23:45 09/15/25 23:46 Normal Saline - Diluent 50 Ml Vial IJ 50 ml DIRECTED LYNN Administration Sodium Chloride 0 ml 09/15/25 23:45 09/15/25 23:46 Normal Saline Flush 10 Ml Syr IVP 10 ml PRN PRN Administration Sodium Chloride 50 ml 09/16/25 00:30 09/16/25 00:43 Normal Saline - Diluent 50 Ml Vial IJ 50 ml DIRECTED LYNN Administration Sodium Chloride 0 ml 09/16/25 00:21 09/16/25 00:43 Normal Saline Flush 10 Ml Syr IVP 10 ml PRN PRN Administration IV IV Catheter Type [Left Forearm Peripheral IV ] IV Catheter Type [Right Upper Peripheral IV arm] IV Catheter Type [Right Saline Lock Antecubital] IV Catheter Gauge [Left 18 Forearm] IV Catheter Gauge [Right Upper 18 arm] IV Catheter Gauge [Right 20 Antecubital] Diet Orders Category Date Time Status Nothing Per Oral [DIET] Nutrition 09/16/25 02:29 Active Diagnostics 09/16/25 09/16/25 09/16/25 Range/Units Unknown 05:35 01:44 WBC Pending (4.4-10.8) 10^3/uL RBC Pending (4.36-5.78) 10^6/uL Hgb Pending (13.5-17.5) g/dL Hct Pending (40.0-50.0) % MCV Pending (80-95) fL MCH Pending (27.0-33.0) pg MCHC Pending (32.0-36.0) % RDW Pending (11.8-14.1) % Plt Count Pending (130-400) 10^3/uL MPV Pending (8.0-11.0) fL Immature Gran % Pending % Neutrophils % Pending % Lymphocytes % Pending % Monocytes % Pending % Eosinophils % Pending % Basophils % Pending % Nucleated RBC % (0.0-0.3) % Absolute Neutrophils Pending (1.2-6.7) 10^3/uL Absolute Lymphocytes Pending (1.2-3.4) 10^3/uL Absolute Monocytes Pending (0.1-0.8) 10^3/uL Absolute Eosinophils Pending (0.0-0.7) 10^3/uL Absolute Basophils Pending (0.0-0.2) 10^3/uL ESR (0-20) mm/hr PT (9.1-11.1) sec INR (0.9-1.1) APTT (20.6-30.2) sec VBG pH 7.32 (7.31-7.41) VBG pCO2 41 (41-51) mmHg VBG pO2 30 mmHg VBG HCO3 21 L (23-28) mmol/L VBG Total CO2 20 L (24-29) mmol/L VBG O2 Saturation 49 % VBG Base Excess -5 L (-2-3) mmol/L VBG Lactate 0.8 (<or=2.0) mmol/L Sodium Pending (136-145) mmol/L Potassium Pending (3.5-5.1) mmol/L Chloride Pending (98-107) mmol/L Carbon Dioxide Pending (20.0-31.0) mmol/L Anion Gap Pending (3-11) mmol/L BUN Pending (9-23) mg/dL Creatinine Pending (0.73-1.18) mg/dL Est GFR (CKD-EPI 2020) Pending (mL/min/1.73m2) Glucose Pending (74-106) mg/dL Calcium Pending (8.3-10.6) mg/dL Magnesium (1.6-2.6) mg/dL Total Bilirubin Pending (0.2-1.2) mg/dL AST Pending (<34) U/L ALT Pending (10-49) U/L Alkaline Phosphatase Pending (46-116) U/L Troponin I 17 (<54) ng/L C-Reactive Protein (<=0.50) mg/dL NT-Pro-B Natriuret Pep (<300) pg/mL Total Protein Pending (5.7-8.2) g/dL Albumin Pending (3.2-5.0) g/dL Lipase (<53) U/L Procalcitonin ng/mL TSH (0.55-4.78) uIU/mL Urine Color (Yellow) Urine Clarity (Clear) Urine pH (5-8) Ur Specific [place] (1.005-1.025) Urine Protein (Neg-Trace) mg/dL Urine Ketones (Negative) mg/dL Urine Blood (Negative) Urine Nitrite (Negative) Urine Bilirubin (Negative) Urine Urobilinogen (Up to 0.2) mg/dL Ur Leukocyte Esterase (Negative) Urine Glucose (Negative) mg/dL Add-On Test Request 09/16/25 09/16/25 09/15/25 Range/Units 00:04 00:00 23:13 WBC 18.70 H (4.4-10.8) 10^3/uL RBC 3.68 L (4.36-5.78) 10^6/uL Hgb 11.0 L (13.5-17.5) g/dL Hct 34.0 L (40.0-50.0) % MCV 92 (80-95) fL MCH 29.9 (27.0-33.0) pg MCHC 32.4 (32.0-36.0) % RDW 13.2 (11.8-14.1) % Plt Count 461 H (130-400) 10^3/uL MPV 8.6 (8.0-11.0) fL Immature Gran % 0.6 % Neutrophils % 84.3 % Lymphocytes % 5.3 % Monocytes % 7.8 % Eosinophils % 1.6 % Basophils % 0.4 % Nucleated RBC % 0.0 (0.0-0.3) % Absolute Neutrophils 15.76 H (1.2-6.7) 10^3/uL Absolute Lymphocytes 0.99 L (1.2-3.4) 10^3/uL Absolute Monocytes 1.46 H (0.1-0.8) 10^3/uL Absolute Eosinophils 0.30 (0.0-0.7) 10^3/uL Absolute Basophils 0.07 (0.0-0.2) 10^3/uL ESR (0-20) mm/hr PT 11.1 (9.1-11.1) sec INR 1.1 (0.9-1.1) APTT 30.5 H (20.6-30.2) sec VBG pH (7.31-7.41) VBG pCO2 (41-51) mmHg VBG pO2 mmHg VBG HCO3 (23-28) mmol/L VBG Total CO2 (24-29) mmol/L VBG O2 Saturation % VBG Base Excess (-2-3) mmol/L VBG Lactate (<or=2.0) mmol/L Sodium 140 (136-145) mmol/L Potassium 5.0 (3.5-5.1) mmol/L Chloride 108 H (98-107) mmol/L Carbon Dioxide 22.4 (20.0-31.0) mmol/L Anion Gap 9.6 (3-11) mmol/L BUN 39 H (9-23) mg/dL Creatinine 1.29 H (0.73-1.18) mg/dL Est GFR (CKD-EPI 2020) 54.06 (mL/min/1.73m2) Glucose 160 H (74-106) mg/dL Calcium 8.7 (8.3-10.6) mg/dL Magnesium 2.0 (1.6-2.6) mg/dL Total Bilirubin 0.70 (0.2-1.2) mg/dL AST 16 (<34) U/L ALT 16 (10-49) U/L Alkaline Phosphatase 65 (46-116) U/L Troponin I 13 12 (<54) ng/L C-Reactive Protein (<=0.50) mg/dL NT-Pro-B Natriuret Pep 1325 H (<300) pg/mL Total Protein 6.9 (5.7-8.2) g/dL Albumin 4.2 (3.2-5.0) g/dL Lipase 37 (<53) U/L Procalcitonin < 0.10 ng/mL TSH 3.69 (0.55-4.78) uIU/mL Urine Color Yellow (Yellow) Urine Clarity Clear (Clear) Urine pH 5.5 (5-8) Ur Specific [place] 1.010 (1.005-1.025) Urine Protein Negative (Neg-Trace) mg/dL Urine Ketones Negative (Negative) mg/dL Urine Blood Negative (Negative) Urine Nitrite Negative (Negative) Urine Bilirubin Negative (Negative) Urine Urobilinogen 0.2 (Up to 0.2) mg/dL Ur Leukocyte Esterase Negative (Negative) Urine Glucose Negative (Negative) mg/dL Add-On Test Request DONE 09/15/25 Range/Units 23:12 WBC (4.4-10.8) 10^3/uL RBC (4.36-5.78) 10^6/uL Hgb (13.5-17.5) g/dL Hct (40.0-50.0) % MCV (80-95) fL MCH (27.0-33.0) pg MCHC (32.0-36.0) % RDW (11.8-14.1) % Plt Count (130-400) 10^3/uL MPV (8.0-11.0) fL Immature Gran % % Neutrophils % % Lymphocytes % % Monocytes % % Eosinophils % % Basophils % % Nucleated RBC % (0.0-0.3) % Absolute Neutrophils (1.2-6.7) 10^3/uL Absolute Lymphocytes (1.2-3.4) 10^3/uL Absolute Monocytes (0.1-0.8) 10^3/uL Absolute Eosinophils (0.0-0.7) 10^3/uL Absolute Basophils (0.0-0.2) 10^3/uL ESR 24 H (0-20) mm/hr PT (9.1-11.1) sec INR (0.9-1.1) APTT (20.6-30.2) sec VBG pH (7.31-7.41) VBG pCO2 (41-51) mmHg VBG pO2 mmHg VBG HCO3 (23-28) mmol/L VBG Total CO2 (24-29) mmol/L VBG O2 Saturation % VBG Base Excess (-2-3) mmol/L VBG Lactate (<or=2.0) mmol/L Sodium (136-145) mmol/L Potassium (3.5-5.1) mmol/L Chloride (98-107) mmol/L Carbon Dioxide (20.0-31.0) mmol/L Anion Gap (3-11) mmol/L BUN (9-23) mg/dL Creatinine (0.73-1.18) mg/dL Est GFR (CKD-EPI 2020) (mL/min/1.73m2) Glucose (74-106) mg/dL Calcium (8.3-10.6) mg/dL Magnesium (1.6-2.6) mg/dL Total Bilirubin (0.2-1.2) mg/dL AST (<34) U/L ALT (10-49) U/L Alkaline Phosphatase (46-116) U/L Troponin I (<54) ng/L C-Reactive Protein 4.41 H (<=0.50) mg/dL NT-Pro-B Natriuret Pep (<300) pg/mL Total Protein (5.7-8.2) g/dL Albumin (3.2-5.0) g/dL Lipase (<53) U/L Procalcitonin ng/mL TSH (0.55-4.78) uIU/mL Urine Color (Yellow) Urine Clarity (Clear) Urine pH (5-8) Ur Specific [place] (1.005-1.025) Urine Protein (Neg-Trace) mg/dL Urine Ketones (Negative) mg/dL Urine Blood (Negative) Urine Nitrite (Negative) Urine Bilirubin (Negative) Urine Urobilinogen (Up to 0.2) mg/dL Ur Leukocyte Esterase (Negative) Urine Glucose (Negative) mg/dL Add-On Test Request DONE 09/16/25 01:15 Blood Culture - Pending Blood 09/16/25 00:59 Blood Culture - Pending Blood Intake and Output - 24 Hour Total 09/15/25 22:51 thru 09/16/25 01:33 Intake Total 1000 Balance 1000 Weight 77.111 kg Intake: IV 1000 Falls Risk Assessment History of Falls Previous History 09/15/25 22:57 Contributing Factors No Factors 09/15/25 22:57 Ambulatory Aids Uses ambulatory device 09/15/25 22:57 Tubes/Lines None 09/15/25 22:57 Gait Evaluation No gait disturbance 09/15/25 22:57 Cognition No cognitive impairment 09/15/25 22:57 Fall Total Score 30 09/15/25 22:57 Level of Risk Moderate Risk 09/15/25 22:57 Problems (Last Updated 02/28/25 @ 17:53 by Naomi Santos RN) Prediabetes (Acute) Leukocytosis (Acute) Atrial flutter (Acute) ACS (acute coronary syndrome) (Acute) Chest pain (Acute) Elevated lipids (Acute 05/18/14) BPH w urinary obs/LUTS (Acute 08/01/16) Attestation Statement: By documenting the first initial, last name, and credentials of the reporting nurse below, both parties acknowledge that all relevant information regarding the patient handoff has been communicated, and that all questions have been addressed to ensure continuity and safety of care. Additional Patient Information/Comments: Report Given To: [facility]
--- NOTE | 2025-09-16 04:01 | W.PC.ACHO ---
Registration Status: REG ER Primary Language: Preferred Language: Albanian ED Information & Data Chief Complaint Chest Pain 09/15/25 23:16 Triage Note 7 of 10 stabbing non 09/15/25 22:54 radiating pain across chest made worse with breathing/ activity. Pain started at 1700 today and got worse over time. Recent surgery. 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) Most Recent Vital Signs Temperature 36.3 C L 09/15/25 22:54 Pulse 58 L 09/16/25 03:03 Pulse 71 09/16/25 02:40 Respiratory Rate 14 09/16/25 03:03 Respiratory Effort Normal 09/15/25 23:17 Respiratory Depth Normal 09/15/25 23:17 Respiratory Pattern Normal 09/15/25 23:17 Blood Pressure 103/44 L 09/16/25 03:03 Blood Pressure Mean 85 09/16/25 01:46 Blood Pressure Position Sitting 09/15/25 22:54 Pulse Oximetry 90 L 09/16/25 03:03 Oxygen Delivery Method Room Air 09/15/25 22:54 Oxygen Flow Rate 0 09/15/25 22:54 Pain Level 6 09/16/25 03:20 Allergies Penicillins Allergy (Severe, Verified 09/15/25 22:59) FACIAL, HAND SWELLING sildenafil citrate (From Viagra) Adverse Reaction (Intermediate, Verified 09/15/25 22:59) vision very bright at 100mg dose Active Medications Generic Name Dose Route Start Last Admin Trade Name Freq PRN Reason Stop Dose Admin Acetaminophen 0 mg 09/16/25 02:28 09/16/25 03:03 Acetaminophen 325 Mg Tab PO 325 mg Q4H PRN PRN Administration Heparin Sodium/Sodium Chloride 25,000 unit in 250 mls @ 0 mls/hr 09/16/25 02:00 09/16/25 02:04 IVINF 9.5 mls/hr INFUSION LYNN 9.5 mls/hr Protocol Administration Per Protocol Iohexol 100 ml 09/15/25 23:45 09/15/25 23:46 Omnipaque 350 Mg/Ml 100 Ml Btl IJ 10/15/25 23:59 70 ml DIRECTED LYNN Administration Iohexol 100 ml 09/16/25 00:30 09/16/25 00:44 Omnipaque 350 Mg/Ml 100 Ml Btl IJ 10/16/25 23:59 70 ml DIRECTED LYNN Administration Morphine Sulfate 4 mg 09/16/25 00:16 09/16/25 00:21 Morphine 10 Mg/Ml Vial IVP 4 mg DIRECTED PRN Administration Nitroglycerin 0.4 mg 09/16/25 01:24 09/16/25 03:02 Nitroglycerin 0.4 Mg Tab SL 0.4 mg Q5 MIN PRN X3 PRN Administration Sodium Chloride 50 ml 09/15/25 23:45 09/15/25 23:46 Normal Saline - Diluent 50 Ml Vial IJ 50 ml DIRECTED LYNN Administration Sodium Chloride 0 ml 09/15/25 23:45 09/15/25 23:46 Normal Saline Flush 10 Ml Syr IVP 10 ml PRN PRN Administration Sodium Chloride 50 ml 09/16/25 00:30 09/16/25 00:43 Normal Saline - Diluent 50 Ml Vial IJ 50 ml DIRECTED LYNN Administration Sodium Chloride 0 ml 09/16/25 00:21 09/16/25 00:43 Normal Saline Flush 10 Ml Syr IVP 10 ml PRN PRN Administration IV IV Catheter Type [] Peripheral IV IV Catheter Type [Right Upper Peripheral IV arm] IV Catheter Type [Right Saline Lock Antecubital] IV Catheter Gauge [] 18 IV Catheter Gauge [Right Upper 18 arm] IV Catheter Gauge [Right 20 Antecubital] Diet Orders Category Date Time Status Nothing Per Oral [DIET] Nutrition 09/16/25 02:29 Active Diagnostics 09/16/25 09/16/25 09/16/25 Range/Units Unknown 05:35 01:44 WBC Pending (4.4-10.8) 10^3/uL RBC Pending (4.36-5.78) 10^6/uL Hgb Pending (13.5-17.5) g/dL Hct Pending (40.0-50.0) % MCV Pending (80-95) fL MCH Pending (27.0-33.0) pg MCHC Pending (32.0-36.0) % RDW Pending (11.8-14.1) % Plt Count Pending (130-400) 10^3/uL MPV Pending (8.0-11.0) fL Immature Gran % Pending % Neutrophils % Pending % Lymphocytes % Pending % Monocytes % Pending % Eosinophils % Pending % Basophils % Pending % Nucleated RBC % (0.0-0.3) % Absolute Neutrophils Pending (1.2-6.7) 10^3/uL Absolute Lymphocytes Pending (1.2-3.4) 10^3/uL Absolute Monocytes Pending (0.1-0.8) 10^3/uL Absolute Eosinophils Pending (0.0-0.7) 10^3/uL Absolute Basophils Pending (0.0-0.2) 10^3/uL ESR (0-20) mm/hr PT (9.1-11.1) sec INR (0.9-1.1) APTT (20.6-30.2) sec VBG pH 7.32 (7.31-7.41) VBG pCO2 41 (41-51) mmHg VBG pO2 30 mmHg VBG HCO3 21 L (23-28) mmol/L VBG Total CO2 20 L (24-29) mmol/L VBG O2 Saturation 49 % VBG Base Excess -5 L (-2-3) mmol/L VBG Lactate 0.8 (<or=2.0) mmol/L Sodium Pending (136-145) mmol/L Potassium Pending (3.5-5.1) mmol/L Chloride Pending (98-107) mmol/L Carbon Dioxide Pending (20.0-31.0) mmol/L Anion Gap Pending (3-11) mmol/L BUN Pending (9-23) mg/dL Creatinine Pending (0.73-1.18) mg/dL Est GFR (CKD-EPI 2020) Pending (mL/min/1.73m2) Glucose Pending (74-106) mg/dL Calcium Pending (8.3-10.6) mg/dL Magnesium (1.6-2.6) mg/dL Total Bilirubin Pending (0.2-1.2) mg/dL AST Pending (<34) U/L ALT Pending (10-49) U/L Alkaline Phosphatase Pending (46-116) U/L Troponin I 17 (<54) ng/L C-Reactive Protein (<=0.50) mg/dL NT-Pro-B Natriuret Pep (<300) pg/mL Total Protein Pending (5.7-8.2) g/dL Albumin Pending (3.2-5.0) g/dL Lipase (<53) U/L Procalcitonin ng/mL TSH (0.55-4.78) uIU/mL Urine Color (Yellow) Urine Clarity (Clear) Urine pH (5-8) Ur Specific [place] (1.005-1.025) Urine Protein (Neg-Trace) mg/dL Urine Ketones (Negative) mg/dL Urine Blood (Negative) Urine Nitrite (Negative) Urine Bilirubin (Negative) Urine Urobilinogen (Up to 0.2) mg/dL Ur Leukocyte Esterase (Negative) Urine Glucose (Negative) mg/dL Add-On Test Request 09/16/25 09/16/25 09/15/25 Range/Units 00:04 00:00 23:13 WBC 18.70 H (4.4-10.8) 10^3/uL RBC 3.68 L (4.36-5.78) 10^6/uL Hgb 11.0 L (13.5-17.5) g/dL Hct 34.0 L (40.0-50.0) % MCV 92 (80-95) fL MCH 29.9 (27.0-33.0) pg MCHC 32.4 (32.0-36.0) % RDW 13.2 (11.8-14.1) % Plt Count 461 H (130-400) 10^3/uL MPV 8.6 (8.0-11.0) fL Immature Gran % 0.6 % Neutrophils % 84.3 % Lymphocytes % 5.3 % Monocytes % 7.8 % Eosinophils % 1.6 % Basophils % 0.4 % Nucleated RBC % 0.0 (0.0-0.3) % Absolute Neutrophils 15.76 H (1.2-6.7) 10^3/uL Absolute Lymphocytes 0.99 L (1.2-3.4) 10^3/uL Absolute Monocytes 1.46 H (0.1-0.8) 10^3/uL Absolute Eosinophils 0.30 (0.0-0.7) 10^3/uL Absolute Basophils 0.07 (0.0-0.2) 10^3/uL ESR (0-20) mm/hr PT 11.1 (9.1-11.1) sec INR 1.1 (0.9-1.1) APTT 30.5 H (20.6-30.2) sec VBG pH (7.31-7.41) VBG pCO2 (41-51) mmHg VBG pO2 mmHg VBG HCO3 (23-28) mmol/L VBG Total CO2 (24-29) mmol/L VBG O2 Saturation % VBG Base Excess (-2-3) mmol/L VBG Lactate (<or=2.0) mmol/L Sodium 140 (136-145) mmol/L Potassium 5.0 (3.5-5.1) mmol/L Chloride 108 H (98-107) mmol/L Carbon Dioxide 22.4 (20.0-31.0) mmol/L Anion Gap 9.6 (3-11) mmol/L BUN 39 H (9-23) mg/dL Creatinine 1.29 H (0.73-1.18) mg/dL Est GFR (CKD-EPI 2020) 54.06 (mL/min/1.73m2) Glucose 160 H (74-106) mg/dL Calcium 8.7 (8.3-10.6) mg/dL Magnesium 2.0 (1.6-2.6) mg/dL Total Bilirubin 0.70 (0.2-1.2) mg/dL AST 16 (<34) U/L ALT 16 (10-49) U/L Alkaline Phosphatase 65 (46-116) U/L Troponin I 13 12 (<54) ng/L C-Reactive Protein (<=0.50) mg/dL NT-Pro-B Natriuret Pep 1325 H (<300) pg/mL Total Protein 6.9 (5.7-8.2) g/dL Albumin 4.2 (3.2-5.0) g/dL Lipase 37 (<53) U/L Procalcitonin < 0.10 ng/mL TSH 3.69 (0.55-4.78) uIU/mL Urine Color Yellow (Yellow) Urine Clarity Clear (Clear) Urine pH 5.5 (5-8) Ur Specific [place] 1.010 (1.005-1.025) Urine Protein Negative (Neg-Trace) mg/dL Urine Ketones Negative (Negative) mg/dL Urine Blood Negative (Negative) Urine Nitrite Negative (Negative) Urine Bilirubin Negative (Negative) Urine Urobilinogen 0.2 (Up to 0.2) mg/dL Ur Leukocyte Esterase Negative (Negative) Urine Glucose Negative (Negative) mg/dL Add-On Test Request DONE 09/15/25 Range/Units 23:12 WBC (4.4-10.8) 10^3/uL RBC (4.36-5.78) 10^6/uL Hgb (13.5-17.5) g/dL Hct (40.0-50.0) % MCV (80-95) fL MCH (27.0-33.0) pg MCHC (32.0-36.0) % RDW (11.8-14.1) % Plt Count (130-400) 10^3/uL MPV (8.0-11.0) fL Immature Gran % % Neutrophils % % Lymphocytes % % Monocytes % % Eosinophils % % Basophils % % Nucleated RBC % (0.0-0.3) % Absolute Neutrophils (1.2-6.7) 10^3/uL Absolute Lymphocytes (1.2-3.4) 10^3/uL Absolute Monocytes (0.1-0.8) 10^3/uL Absolute Eosinophils (0.0-0.7) 10^3/uL Absolute Basophils (0.0-0.2) 10^3/uL ESR 24 H (0-20) mm/hr PT (9.1-11.1) sec INR (0.9-1.1) APTT (20.6-30.2) sec VBG pH (7.31-7.41) VBG pCO2 (41-51) mmHg VBG pO2 mmHg VBG HCO3 (23-28) mmol/L VBG Total CO2 (24-29) mmol/L VBG O2 Saturation % VBG Base Excess (-2-3) mmol/L VBG Lactate (<or=2.0) mmol/L Sodium (136-145) mmol/L Potassium (3.5-5.1) mmol/L Chloride (98-107) mmol/L Carbon Dioxide (20.0-31.0) mmol/L Anion Gap (3-11) mmol/L BUN (9-23) mg/dL Creatinine (0.73-1.18) mg/dL Est GFR (CKD-EPI 2020) (mL/min/1.73m2) Glucose (74-106) mg/dL Calcium (8.3-10.6) mg/dL Magnesium (1.6-2.6) mg/dL Total Bilirubin (0.2-1.2) mg/dL AST (<34) U/L ALT (10-49) U/L Alkaline Phosphatase (46-116) U/L Troponin I (<54) ng/L C-Reactive Protein 4.41 H (<=0.50) mg/dL NT-Pro-B Natriuret Pep (<300) pg/mL Total Protein (5.7-8.2) g/dL Albumin (3.2-5.0) g/dL Lipase (<53) U/L Procalcitonin ng/mL TSH (0.55-4.78) uIU/mL Urine Color (Yellow) Urine Clarity (Clear) Urine pH (5-8) Ur Specific [place] (1.005-1.025) Urine Protein (Neg-Trace) mg/dL Urine Ketones (Negative) mg/dL Urine Blood (Negative) Urine Nitrite (Negative) Urine Bilirubin (Negative) Urine Urobilinogen (Up to 0.2) mg/dL Ur Leukocyte Esterase (Negative) Urine Glucose (Negative) mg/dL Add-On Test Request DONE 09/16/25 01:15 Blood Culture - Pending Blood 09/16/25 00:59 Blood Culture - Pending Blood Intake and Output - 24 Hour Total 09/15/25 22:51 thru 09/16/25 01:33 Intake Total 1000 Balance 1000 Weight 77.111 kg Intake: IV 1000 Falls Risk Assessment History of Falls Previous History 09/15/25 22:57 Contributing Factors No Factors 09/15/25 22:57 Ambulatory Aids Uses ambulatory device 09/15/25 22:57 Tubes/Lines None 09/15/25 22:57 Gait Evaluation No gait disturbance 09/15/25 22:57 Cognition No cognitive impairment 09/15/25 22:57 Fall Total Score 30 09/15/25 22:57 Level of Risk Moderate Risk 09/15/25 22:57 Problems (Last Updated 02/28/25 @ 17:53 by Naomi Santos RN) Prediabetes (Acute) Leukocytosis (Acute) Atrial flutter (Acute) ACS (acute coronary syndrome) (Acute) Chest pain (Acute) Elevated lipids (Acute 05/18/14) BPH w urinary obs/LUTS (Acute 08/01/16) Attestation Statement: By documenting the first initial, last name, and credentials of the reporting nurse below, both parties acknowledge that all relevant information regarding the patient handoff has been communicated, and that all questions have been addressed to ensure continuity and safety of care. Additional Patient Information/Comments: patient started with CP at home about 7 pm. Was given nitro and morphine in ED which was helpful. Plan for transfer to [facility] [place] [place] tomorrow for heart cath. is at bedside. Was given 2L NS via pressure bag in the ED. Did have new Afib, but no RVR. Has been in the 50's. Last nitro given around 2-3 did cause hypotension. Patient given zofran for nausea. Report Received From: BASIA Irwin
[2025-09-16] MEDS: Atorvastatin 40 MG TAB 80 MG PO (04:49)
[2025-09-16] MEDS: levoFLOXacin 750 MG/150 ML BAG 100 MG IVPB (05:00)
--- NOTE | 2025-09-16 05:45 | W.NUTRFU ---
Date of service: 09/16/25 Time of Service: 05:45 Nutrition Note NOTE: received consult request for diabetes education while patient still in ER. Pt ultimately transferred to [facility] [place] before I could assess and interview. Time Spent in Nutritional Counseling and Treatment: 0
--- NOTE | 2025-09-16 05:52 | W.PCEDHO ---
Registration Status: REG ER Primary Language: Preferred Language: Greek ED Information & Data Chief Complaint Chest Pain 09/15/25 23:16 Triage Note 7 of 10 stabbing non 09/15/25 22:54 radiating pain across chest made worse with breathing/ activity. Pain started at 1700 today and got worse over time. Recent surgery. 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) Vasectomy (10/11/91) Most Recent Vital Signs Temperature 36.3 C L 09/15/25 22:54 Pulse 88 09/16/25 04:40 Pulse 88 09/16/25 04:40 Respiratory Rate 24 09/16/25 04:40 Respiratory Effort Normal 09/15/25 23:17 Respiratory Depth Normal 09/15/25 23:17 Respiratory Pattern Normal 09/15/25 23:17 Blood Pressure 138/56 L 09/16/25 04:37 Blood Pressure Mean 78 09/16/25 04:37 Blood Pressure Position Sitting 09/15/25 22:54 Pulse Oximetry 97 09/16/25 04:40 Oxygen Delivery Method Room Air 09/15/25 22:54 Oxygen Flow Rate 0 09/15/25 22:54 Pain Level 5 09/16/25 04:30 Comment Placed on 2L nasal cannula 09/16/25 02:59 Allergies Penicillins Allergy (Severe, Verified 09/15/25 22:59) FACIAL, HAND SWELLING sildenafil citrate (From Viagra) Adverse Reaction (Intermediate, Verified 09/15/25 22:59) vision very bright at 100mg dose Active Medications Generic Name Dose Route Start Last Admin Trade Name Freq PRN Reason Stop Dose Admin Acetaminophen 0 mg 09/16/25 02:28 09/16/25 03:03 Acetaminophen 325 Mg Tab PO 325 mg Q4H PRN PRN Administration Levofloxacin 750 mg in 150 mls @ 100 mls/hr 09/16/25 01:30 09/16/25 05:00 Levaquin Premixed Bag IVPB 100 mls/hr Q24H LYNN Administration Heparin Sodium/Sodium Chloride 25,000 unit in 250 mls @ 0 mls/hr 09/16/25 02:00 09/16/25 02:04 IVINF 9.5 mls/hr INFUSION LYNN 9.5 mls/hr Protocol Administration Per Protocol Iohexol 100 ml 09/15/25 23:45 09/15/25 23:46 Omnipaque 350 Mg/Ml 100 Ml Btl IJ 10/15/25 23:59 70 ml DIRECTED LYNN Administration Iohexol 100 ml 09/16/25 00:30 09/16/25 00:44 Omnipaque 350 Mg/Ml 100 Ml Btl IJ 10/16/25 23:59 70 ml DIRECTED LYNN Administration Morphine Sulfate 4 mg 09/16/25 00:16 09/16/25 04:30 Morphine 10 Mg/Ml Vial IVP 4 mg DIRECTED PRN Administration Nitroglycerin 0.4 mg 09/16/25 01:24 09/16/25 03:02 Nitroglycerin 0.4 Mg Tab SL 0.4 mg Q5 MIN PRN X3 PRN Administration Sodium Chloride 50 ml 09/15/25 23:45 09/15/25 23:46 Normal Saline - Diluent 50 Ml Vial IJ 50 ml DIRECTED LYNN Administration Sodium Chloride 0 ml 09/15/25 23:45 09/15/25 23:46 Normal Saline Flush 10 Ml Syr IVP 10 ml PRN PRN Administration Sodium Chloride 50 ml 09/16/25 00:30 09/16/25 00:43 Normal Saline - Diluent 50 Ml Vial IJ 50 ml DIRECTED LYNN Administration Sodium Chloride 0 ml 09/16/25 00:21 09/16/25 00:43 Normal Saline Flush 10 Ml Syr IVP 10 ml PRN PRN Administration IV IV Catheter Type [Left Forearm Peripheral IV ] IV Catheter Type [Right Upper Peripheral IV arm] IV Catheter Type [Right Saline Lock Antecubital] IV Catheter Gauge [Left 18 Forearm] IV Catheter Gauge [Right Upper 18 arm] IV Catheter Gauge [Right 20 Antecubital] Diet Orders Category Date Time Status Nothing Per Oral [DIET] Nutrition 09/16/25 02:29 Active Diagnostics 09/16/25 09/16/25 09/16/25 Range/Units Unknown 05:35 01:44 WBC Cancelled (4.4-10.8) 10^3/uL RBC Cancelled (4.36-5.78) 10^6/uL Hgb Cancelled (13.5-17.5) g/dL Hct Cancelled (40.0-50.0) % MCV Cancelled (80-95) fL MCH Cancelled (27.0-33.0) pg MCHC Cancelled (32.0-36.0) % RDW Cancelled (11.8-14.1) % Plt Count Cancelled (130-400) 10^3/uL MPV Cancelled (8.0-11.0) fL Immature Gran % Cancelled % Neutrophils % Cancelled % Band Neutrophils % Cancelled Lymphocytes % Cancelled % Atypical Lymphs % Cancelled Monocytes % Cancelled % Eosinophils % Cancelled % Basophils % Cancelled % Metamyelocytes % Cancelled Myelocytes % Cancelled Promyelocytes % Cancelled Other Cells % Cancelled Nucleated RBC % Cancelled (0.0-0.3) % Absolute Neutrophils Cancelled (1.2-6.7) 10^3/uL Absolute Lymphocytes Cancelled (1.2-3.4) 10^3/uL Absolute Monocytes Cancelled (0.1-0.8) 10^3/uL Absolute Eosinophils Cancelled (0.0-0.7) 10^3/uL Absolute Basophils Cancelled (0.0-0.2) 10^3/uL RBC Morphology Cancelled Polychromasia Cancelled Hypochromasia Cancelled Poikilocytosis Cancelled Basophilic Stippling Cancelled Anisocytosis Cancelled Microcytosis Cancelled Macrocytosis Cancelled Spherocytes Cancelled Tear Drop Cells Cancelled Ovalocytes Cancelled Stomatocytes Cancelled [place] Bodies Cancelled [place] Cells/Echinocytes Cancelled Acanthocytes (Spur) Cancelled Schistocytes Cancelled ESR (0-20) mm/hr PT (9.1-11.1) sec INR (0.9-1.1) APTT (20.6-30.2) sec VBG pH 7.32 (7.31-7.41) VBG pCO2 41 (41-51) mmHg VBG pO2 30 mmHg VBG HCO3 21 L (23-28) mmol/L VBG Total CO2 20 L (24-29) mmol/L VBG O2 Saturation 49 % VBG Base Excess -5 L (-2-3) mmol/L VBG Lactate 0.8 (<or=2.0) mmol/L Sodium Cancelled (136-145) mmol/L Potassium Cancelled (3.5-5.1) mmol/L Chloride Cancelled (98-107) mmol/L Carbon Dioxide Cancelled (20.0-31.0) mmol/L Anion Gap Cancelled (3-11) mmol/L BUN Cancelled (9-23) mg/dL Creatinine Cancelled (0.73-1.18) mg/dL Est GFR (CKD-EPI 2020) Cancelled (mL/min/1.73m2) Glucose Cancelled (74-106) mg/dL Calcium Cancelled (8.3-10.6) mg/dL Magnesium (1.6-2.6) mg/dL Total Bilirubin Cancelled (0.2-1.2) mg/dL AST Cancelled (<34) U/L ALT Cancelled (10-49) U/L Alkaline Phosphatase Cancelled (46-116) U/L Troponin I 17 (<54) ng/L C-Reactive Protein (<=0.50) mg/dL NT-Pro-B Natriuret Pep (<300) pg/mL Total Protein Cancelled (5.7-8.2) g/dL Albumin Cancelled (3.2-5.0) g/dL Lipase (<53) U/L Procalcitonin ng/mL TSH (0.55-4.78) uIU/mL Urine Color (Yellow) Urine Clarity (Clear) Urine pH (5-8) Ur Specific [place] (1.005-1.025) Urine Protein (Neg-Trace) mg/dL Urine Ketones (Negative) mg/dL Urine Blood (Negative) Urine Nitrite (Negative) Urine Bilirubin (Negative) Urine Urobilinogen (Up to 0.2) mg/dL Ur Leukocyte Esterase (Negative) Urine Glucose (Negative) mg/dL Add-On Test Request 09/16/25 09/16/25 09/15/25 Range/Units 00:04 00:00 23:13 WBC 18.70 H (4.4-10.8) 10^3/uL RBC 3.68 L (4.36-5.78) 10^6/uL Hgb 11.0 L (13.5-17.5) g/dL Hct 34.0 L (40.0-50.0) % MCV 92 (80-95) fL MCH 29.9 (27.0-33.0) pg MCHC 32.4 (32.0-36.0) % RDW 13.2 (11.8-14.1) % Plt Count 461 H (130-400) 10^3/uL MPV 8.6 (8.0-11.0) fL Immature Gran % 0.6 % Neutrophils % 84.3 % Band Neutrophils % Lymphocytes % 5.3 % Atypical Lymphs % Monocytes % 7.8 % Eosinophils % 1.6 % Basophils % 0.4 % Metamyelocytes % Myelocytes % Promyelocytes % Other Cells % Nucleated RBC % 0.0 (0.0-0.3) % Absolute Neutrophils 15.76 H (1.2-6.7) 10^3/uL Absolute Lymphocytes 0.99 L (1.2-3.4) 10^3/uL Absolute Monocytes 1.46 H (0.1-0.8) 10^3/uL Absolute Eosinophils 0.30 (0.0-0.7) 10^3/uL Absolute Basophils 0.07 (0.0-0.2) 10^3/uL RBC Morphology Polychromasia Hypochromasia Poikilocytosis Basophilic Stippling Anisocytosis Microcytosis Macrocytosis Spherocytes Tear Drop Cells Ovalocytes Stomatocytes [place] Bodies [place] Cells/Echinocytes Acanthocytes (Spur) Schistocytes ESR (0-20) mm/hr PT 11.1 (9.1-11.1) sec INR 1.1 (0.9-1.1) APTT 30.5 H (20.6-30.2) sec VBG pH (7.31-7.41) VBG pCO2 (41-51) mmHg VBG pO2 mmHg VBG HCO3 (23-28) mmol/L VBG Total CO2 (24-29) mmol/L VBG O2 Saturation % VBG Base Excess (-2-3) mmol/L VBG Lactate (<or=2.0) mmol/L Sodium 140 (136-145) mmol/L Potassium 5.0 (3.5-5.1) mmol/L Chloride 108 H (98-107) mmol/L Carbon Dioxide 22.4 (20.0-31.0) mmol/L Anion Gap 9.6 (3-11) mmol/L BUN 39 H (9-23) mg/dL Creatinine 1.29 H (0.73-1.18) mg/dL Est GFR (CKD-EPI 2020) 54.06 (mL/min/1.73m2) Glucose 160 H (74-106) mg/dL Calcium 8.7 (8.3-10.6) mg/dL Magnesium 2.0 (1.6-2.6) mg/dL Total Bilirubin 0.70 (0.2-1.2) mg/dL AST 16 (<34) U/L ALT 16 (10-49) U/L Alkaline Phosphatase 65 (46-116) U/L Troponin I 13 12 (<54) ng/L C-Reactive Protein (<=0.50) mg/dL NT-Pro-B Natriuret Pep 1325 H (<300) pg/mL Total Protein 6.9 (5.7-8.2) g/dL Albumin 4.2 (3.2-5.0) g/dL Lipase 37 (<53) U/L Procalcitonin < 0.10 ng/mL TSH 3.69 (0.55-4.78) uIU/mL Urine Color Yellow (Yellow) Urine Clarity Clear (Clear) Urine pH 5.5 (5-8) Ur Specific [place] 1.010 (1.005-1.025) Urine Protein Negative (Neg-Trace) mg/dL Urine Ketones Negative (Negative) mg/dL Urine Blood Negative (Negative) Urine Nitrite Negative (Negative) Urine Bilirubin Negative (Negative) Urine Urobilinogen 0.2 (Up to 0.2) mg/dL Ur Leukocyte Esterase Negative (Negative) Urine Glucose Negative (Negative) mg/dL Add-On Test Request DONE 09/15/25 Range/Units 23:12 WBC (4.4-10.8) 10^3/uL RBC (4.36-5.78) 10^6/uL Hgb (13.5-17.5) g/dL Hct (40.0-50.0) % MCV (80-95) fL MCH (27.0-33.0) pg MCHC (32.0-36.0) % RDW (11.8-14.1) % Plt Count (130-400) 10^3/uL MPV (8.0-11.0) fL Immature Gran % % Neutrophils % % Band Neutrophils % Lymphocytes % % Atypical Lymphs % Monocytes % % Eosinophils % % Basophils % % Metamyelocytes % Myelocytes % Promyelocytes % Other Cells % Nucleated RBC % (0.0-0.3) % Absolute Neutrophils (1.2-6.7) 10^3/uL Absolute Lymphocytes (1.2-3.4) 10^3/uL Absolute Monocytes (0.1-0.8) 10^3/uL Absolute Eosinophils (0.0-0.7) 10^3/uL Absolute Basophils (0.0-0.2) 10^3/uL RBC Morphology Polychromasia Hypochromasia Poikilocytosis Basophilic Stippling Anisocytosis Microcytosis Macrocytosis Spherocytes Tear Drop Cells Ovalocytes Stomatocytes [place] Bodies [place] Cells/Echinocytes Acanthocytes (Spur) Schistocytes ESR 24 H (0-20) mm/hr PT (9.1-11.1) sec INR (0.9-1.1) APTT (20.6-30.2) sec VBG pH (7.31-7.41) VBG pCO2 (41-51) mmHg VBG pO2 mmHg VBG HCO3 (23-28) mmol/L VBG Total CO2 (24-29) mmol/L VBG O2 Saturation % VBG Base Excess (-2-3) mmol/L VBG Lactate (<or=2.0) mmol/L Sodium (136-145) mmol/L Potassium (3.5-5.1) mmol/L Chloride (98-107) mmol/L Carbon Dioxide (20.0-31.0) mmol/L Anion Gap (3-11) mmol/L BUN (9-23) mg/dL Creatinine (0.73-1.18) mg/dL Est GFR (CKD-EPI 2020) (mL/min/1.73m2) Glucose (74-106) mg/dL Calcium (8.3-10.6) mg/dL Magnesium (1.6-2.6) mg/dL Total Bilirubin (0.2-1.2) mg/dL AST (<34) U/L ALT (10-49) U/L Alkaline Phosphatase (46-116) U/L Troponin I (<54) ng/L C-Reactive Protein 4.41 H (<=0.50) mg/dL NT-Pro-B Natriuret Pep (<300) pg/mL Total Protein (5.7-8.2) g/dL Albumin (3.2-5.0) g/dL Lipase (<53) U/L Procalcitonin ng/mL TSH (0.55-4.78) uIU/mL Urine Color (Yellow) Urine Clarity (Clear) Urine pH (5-8) Ur Specific [place] (1.005-1.025) Urine Protein (Neg-Trace) mg/dL Urine Ketones (Negative) mg/dL Urine Blood (Negative) Urine Nitrite (Negative) Urine Bilirubin (Negative) Urine Urobilinogen (Up to 0.2) mg/dL Ur Leukocyte Esterase (Negative) Urine Glucose (Negative) mg/dL Add-On Test Request DONE 09/16/25 01:15 Blood Culture - Pending Blood 09/16/25 00:59 Blood Culture - Pending Blood Intake and Output - 24 Hour Total 09/15/25 22:51 thru 09/16/25 01:33 Intake Total 1000 Balance 1000 Weight 77.111 kg Intake: IV 1000 Falls Risk Assessment History of Falls Previous History 09/15/25 22:57 Contributing Factors No Factors 09/15/25 22:57 Ambulatory Aids Uses ambulatory device 09/15/25 22:57 Tubes/Lines None 09/15/25 22:57 Gait Evaluation No gait disturbance 09/15/25 22:57 Cognition No cognitive impairment 09/15/25 22:57 Fall Total Score 30 09/15/25 22:57 Level of Risk Moderate Risk 09/15/25 22:57 Problems (Last Updated 02/28/25 @ 17:53 by Naomi Santos RN) Prediabetes (Acute) Leukocytosis (Acute) Atrial flutter (Acute) ACS (acute coronary syndrome) (Acute) Chest pain (Acute) Elevated lipids (Acute 05/18/14) BPH w urinary obs/LUTS (Acute 08/01/16) Attestation Statement: By documenting the first initial, last name, and credentials of the reporting nurse below, both parties acknowledge that all relevant information regarding the patient handoff has been communicated, and that all questions have been addressed to ensure continuity and safety of care. Additional Patient Information/Comments: Report Given To: Natalie FLOR @ Replaced by [facility], [id number]
== END 2025-09-16 05:17 | disposition short-term general hospital (02) ==
PROVIDERS: Emergency Provider Student in an Organized Health Care Education/Training Program
DX: I24.9 Acute ischemic heart disease, unspecified (principal); I48.92 Unspecified atrial flutter; J90 Pleural effusion, not elsewhere classified; D72.829 Elevated white blood cell count, unspecified; D64.9 Anemia, unspecified; I10 Essential (primary) hypertension; E11.9 Type 2 diabetes mellitus without complications; Z96.641 Presence of right artificial hip joint
CPT/HCPCS: 00123; 71275; 80053; 82805; 83690; 84145; 85652; 87040; 93005; 96365; 96366; 96368; 96375; 99291; 74174; 81003; 83605; 83735; 83880; 84443; 84484; 85025; 85610; 85730; 86140; 93010; J1644; J1815; J1956; J2270; J2405; J3490

== ENCOUNTER → 2025-10-02 08:46 | Outpatient (CLI) | payer MEDICARE, SELFPAY ==
--- NOTE | 2025-10-02 09:04 | DI.RAD_ITS ---
Exam(s) XR CHEST 2V PA LATERAL EXAM: XR CHEST 2V PA LATERAL CLINICAL HISTORY: RULE OUT PNEUMONIA, DYSPNEA, LUNG CRACKLES R06.00 R09.89 TECHNIQUE: 2D digital imaging was performed of the chest. Two images were obtained. PA and lateral views were obtained. COMPARISON: CT CT THORAX ABD/PEL CTA from 09/16/2025 FINDINGS: There is elevation of the right hemidiaphragm. MEDIASTINUM: Normal. HEART: The heart is at the upper limits of normal in size. PULMONARY VASCULATURE: Normal. LUNGS: There does appear to be a retrocardiac infiltrate on the lateral view. PLEURAL SPACE: There is blunting of the costophrenic angle suggesting small bilateral pleural effusions. BONE:Within normal limits for the patient's age. There are marked degenerative changes seen at the right glenohumeral joint. OTHER FINDINGS:Normal. IMPRESSION: 1. Small bilateral pleural effusions. 2. Question of a retrocardiac infiltrate. DATA REPOSITORY: RADIATION DOSE DELIVERED:
== END ==
LOC: DI 08:48
DX: R06.00 Dyspnea, unspecified (principal); R09.89 Other specified symptoms and signs involving the circulatory and respiratory systems; J90 Pleural effusion, not elsewhere classified
CPT/HCPCS: 71046

== ENCOUNTER → 2025-10-09 14:36 | Outpatient (CLI) | payer MEDICARE, SELFPAY ==
--- NOTE | 2025-10-09 10:45 | DI.RAD_ITS ---
Exam(s) XR CHEST 2V PA LATERAL EXAM: XR CHEST 2V PA LATERAL CLINICAL HISTORY: Follow up imaging J90 PLEURAL EFFUSION. TECHNIQUE: 2D digital imaging was performed. COMPARISON: CT CT THORAX ABD/PEL CTA from 09/16/2025 CR XR CHEST 2V PA LATERAL from 10/02/2025 FINDINGS: 2 views: Heart size is upper normal. The mediastinum is not widened. There is a moderate size right pleural effusion which was not evident on chest CT scan of 09/16/2025 and which has slightly increased in size from plain film of 10/02/2025. There is also some infiltrate in the opposite-left lung base posterior basal segment left lower lobe and a small left pleural effusion. No evidence of pulmonary edema. Advanced degenerative changes in the right shoulder glenohumeral joint are again noted. IMPRESSION: Increasing size right pleural effusion, presently moderate size. Increasing infiltrate in the left lung base left lower lobe and small left pleural effusion also noted. DATA REPOSITORY: RADIATION DOSE DELIVERED:
--- NOTE | 2025-10-09 11:37 | DI.VRAD_ITS ---
PROCEDURE INFORMATION: Exam: XR Chest Exam date and time: 10/09/2025 11:03 AM Age: 75 years old Clinical indication: Other: Follow up imaging j90 pleural effusion TECHNIQUE: Imaging protocol: Radiologic exam of the chest. Views: 2 views. COMPARISON: CR XR CHEST 2V PA LATERAL 10/02/2025 8:57 AM FINDINGS: Lungs: See Pleural spaces finding. Pleural spaces: moderate right pleural effusion with adjacent basilar consolidation versus atelectasis. Small left pleural effusion with mild adjacent atelectasis. Heart/Mediastinum: Unremarkable. No cardiomegaly. Bones/joints: Unremarkable. IMPRESSION: Moderate right pleural effusion with adjacent basilar consolidation versus atelectasis. Small left pleural effusion with mild adjacent atelectasis. Stable. Dictated and Authenticated by: Cal Vásquez MD. Orderin Mago Jiang MD
== END ==
LOC: DI 10-18 14:36
DX: J90 Pleural effusion, not elsewhere classified (principal)
CPT/HCPCS: 71046

== ENCOUNTER → 2025-10-10 09:40 | Outpatient (BNVA) | payer MEDICARE, SELFPAY | PROVIDERS: Visit Provider Internal Medicine Pulmonary Disease ==